=== PATIENT | male | born 1970 | race Caucasian/White ===

== ENCOUNTER 2018-08-07 21:07 | Emergency (ER) | payer MEDICAID, SELFPAY ==
[2018-08-07 21:08] VITALS: BP 151/88; PULSE 94; RESP 14; TEMP 36.7; O2SAT 98; BMI 29.1
--- NOTE | 2018-08-07 21:25 | ED.VISSUMM ---
- ER Visit Summary Date of Service: 08/07/18 Chief Complaint: Needs meds refilled History of Present Illness: The patient is a [address] [place] schizoaffective and bipolar disorder. Sees the counseling center. Patient states he has been out of these meds for 3 days like them to be refilled until he can follow-up. He denies any other complaints. Physical Examination: Well-appearing middle-age male. No acute distress. Vital signs are stable and afebrile. H EENT exam unremarkable. Neck nontender. Lungs clear to auscultation bilaterally. Heart regular rhythm no murmur. Abdomen soft nontender. Patient moving all 4 extremities. No signs of trauma. Neurologically is awake and alert with no focal motor deficits. Test Results: None Emergency Department Course and Treatment: Patient be given a 2-week prescription of his Klonopin and his Ambien and follow-up with the counseling center. Treatment Plan: Follow-up with counseling center Disposition: Discharge Impression: Med refill History of psychiatric illness This note was generated with [employer] dictation software. It may contain incorrect words, spelling, and punctuation that were not noted in review of the chart prior to signing ED Disposition - Plan for ED Patient: Chief Complaint: Med Refill Referrals: Onur Woods MD [Primary Care Provider] -
--- NOTE | 2018-08-07 21:26 | ED.DEP ---
ED Disposition - Plan for ED Patient: Disposition: Home or Assisted Living Chief Complaint: Med Refill Instructions: Med Refill Prescriptions: Clonazepam [Klonopin] 2 mg PO DAILY 14 Days #14 tab Zolpidem Tartrate [Ambien (Generic)] 10 mg PO QHS 14 Days #14 tab Referrals: Onur Woods MD [Primary Care Provider] - Additional Instructions: Follow-up with the counseling center in your psychiatrist for further med refills.
[2018-08-07] MEDS: LORazepam 1 MG Tablet PO (21:31)
--- OUTSIDE RECORDS SUMMARY | 2018-10-11 10:50 | XMS RPT_ITS ---
:1970 Author Organization OHIP Care Team Providers Name Role Phone ONUR YAO Attending Unavailable ONUR YAO Referring Unavailable ELINOR HO (LIQUID SUGAR MELTER) Attending Unavailable ONUR YAO Attending Unavailable ONUR YAO Referring Unavailable ONUR YAO Attending Unavailable ELINOR HO (LIQUID SUGAR MELTER) Attending Unavailable Onur Yao Primary Care Unavailable Shiva Joshua Attending Unavailable PROBLEMS PROBLEMS DATE TYPE CONDITION / CODE ATTENDING STATUS SOURCE 09/04/2017 Active Unknown / NAJMA, Active [facility] UNK(Unknown) ONUR Aguilar [facility] Repository PROCEDURES PROCEDURES No Procedure Records FoundRESULTS RESULTS EMERGENCY DEPARTMENT Observed: 08/07/2018 Status: F Source: ECKERMAN SUMMARY 10:58 PM [facility] [place] REPOSITORY [facility] Medical Records Department [address] [place] [address] Emergency Department Summary 08/07/182124 MR#: [id number] Acct: [id number] Name: ABDULLAHI CHRISTIE Rep #: [id number] : 1970 47 From: Shiva Joshua MD PCP: Onur Yao MD Status: DEP ER - ER Visit Summary Date of Service: 08/07/18 Chief Complaint: Needs meds refilled History of Present Illness: The patient is a [address] [place] schizoaffective and bipolar disorder. Sees the counseling center. Patient states he has been out of these meds for 3 days like them to be refilled until he can follow-up. He denies any other complaints. Physical Examination: Well-appearing middle-age male. No acute distress. Vital signs are stable and afebrile. H EENT exam unremarkable. Neck nontender. Lungs clear to auscultation bilaterally. Heart regular rhythm no murmur. Abdomen soft nontender. Patient moving all 4 extremities. No signs of trauma. Neurologically is awake and alert with no focal motor deficits. Test Results: None Emergency Department Course and Treatment: Patient be given a 2-week prescription of his Klonopin and his Ambien and follow-up with the counseling center. Treatment Plan: Follow-up with counseling center Disposition: Discharge Impression: Med refill History of psychiatric illness This note was generated with [employer] MR[employer] dictation software. It may contain incorrect words, spelling, and punctuation that were not noted in review of the chart prior to signing ED Disposition - Plan for ED Patient: Chief Complaint: Med Refill Referrals: Onur Yao MD [Primary Care Provider] - What to do if you have Problems For any increased pain, shortness of breath, bleeding, nausea or vomiting, chest pain, or any unexpected problems, contact your Primary Care Provider. Call [facility] ([phone]) or report to the closest Emergency Room. Call 911 if necessary. 08/07/18 2258 <Electronically signed by Shiva Joshua MD> Date Shiva Joshua MD Cosigner Signature (If Indicated): Date CC: Onur Yao MD DISCHARGE INSTRUCTION Observed: 08/07/2018 Status: F Source: TATIA[place] 10:58 PM [facility] REPOSITORY [facility] Medical Records Department [address] [place] [address] Discharge Instruction 08/07/182125 MR#: [id number] Acct: [id number] Name: ABDULLAHI CHRISTIE Rep #: [id number] : 1970 47 From: Shiva Joshua MD PCP: Onur Yao MD Status: [facility] ED Disposition - Plan for ED Patient: Disposition: Home or Assisted Living Chief Complaint: Med Refill Instructions: Med Refill Prescriptions: Clonazepam [Klonopin] 2 mg PO DAILY 14 Days #14 tab Zolpidem Tartrate [Ambien (Generic)] 10 mg PO QHS 14 Days #14 tab Referrals: Onur Yao MD [Primary Care Provider] - Additional Instructions: Follow-up with the counseling center in your psychiatrist for further med refills. What to do if you have Problems For any increased pain, shortness of breath, bleeding, nausea or vomiting, chest pain, or any unexpected problems, contact your Primary Care Provider. Call [facility] ([phone]) or report to the closest Emergency Room. Call 911 if necessary. 08/07/18 5195 <Electronically signed by Shiva Joshua MD> Date Shiva Joshua MD Cosigner Signature (If Indicated): Date CC: Onur Yao MD PROGRESS Observed: 07/05/2018 Status: COMPLETED Source: PROSPECT 11:38 AM [facility] REPOSITORY O ID: [id number] Author: Theresa ([facility]) Rosalino Service: (none) Author Type: Health Educator Type: Progress Notes Filed: 07/05/2018 11:38 AM Note Text: Smoking Cessation Navigation Date contact made: 05/25/2018 AND 06/01/2018 Outcome of contact: Left Message Intervention Chosen By Patient: None Comments: Left 2 VM AND email [employer] Roof Plumber/Smoking Cessation Navigator: Theresa Pa [facility] HOSP Observed: 07/05/2018 Status: COMPLETED Source: PROSPECT 12:00 AM [facility] REPOSITORY Patient Update (WIQ) ABDULLAHI CHRISTIE ([id number]) 1970 M Date Time Provider Department 07/05/18 THERESA PA ([facility])MARIA DEL ROSARIO During your visit today, we recorded the following information about you: Theresa [facility] 07/05/2018 11:38 AM Signed Smoking Cessation Navigation Date contact made: 05/25/2018 AND 06/01/2018 Outcome of contact: Left Message Intervention Chosen By Patient: None Comments: Left 2 VM AND email [facility] Roof Plumber/Smoking Cessation Navigator[facility] Allergies As of Date: 07/05/2018 (No Known Allergies) Date Reviewed: 06/24/2018 Reviewed by: Sully Garcia Cma - Fully Assessed Reason for Visit: Smoking Cessation [1387] Prescriptions as of 07/05/2018 Sig: ALBUTEROL SULFATE HFA 90 MCG/* Inhale 2 Puffs as instructed * BENZTROPINE 2 MG TABLET Take 1 tablet by mouth daily * CLONAZEPAM 2 MG TABLET Take 2 mg by mouth daily at b* CLOTRIMAZOLE-BETAMETHASONE 1 * Apply 1 application to affect* FANAPT 1 MG TABLET Take 1 tablet by mouth once d* FLUTICASONE 110 MCG/ACTUATION* Inhale 1 Puff as instructed t* HALOPERIDOL 10 MG TABLET Take 2 tablets by mouth daily* IBUPROFEN 600 MG TABLET Take 1 tablet by mouth every * NAPROXEN 500 MG TABLET Take 1 tablet by mouth twice * NICOTINE (POLACRILEX) 4 MG GUM Take 1 Each by mouth as neede* OMEPRAZOLE 40 MG CAPSULE,CHRISTOPHER* Take 1 capsule by mouth once * ZOLPIDEM 10 MG TABLET Take 1 tablet by mouth at bed* Problem List As Of Date 07/05/2018 Noted Resolved DRUG ABUSE NEC-UNSPEC [F19.10] PARANOID SCHIZO-CHRONIC [F20.0] More... ADJUSTMENT DISORDER WITH DEPRESSED MOOD [F43.21] ESOPHAGEAL REFLUX [K21.9] INVALID FOR* Impotence of organic origin [N52.9] INVALID FOR*09/25/2011 Knee pain, left [M25.562] INVALID FOR*04/03/2016 More... Tobacco use disorder [F17.200] INVALID FOR* Polycythemia, secondary [D75.1] INVALID FOR*10/18/2015 Erectile dysfunction [N52.9] INVALID FOR* Pericardial cyst [Q24.8] INVALID FOR*10/18/2015 Abnormal resting ECG findings [R94.31] INVALID FOR*03/04/2018 Mixed hyperlipidemia [E78.2] INVALID FOR* Bronchitis [J40] INVALID FOR* Male hypogonadism [E29.1] INVALID FOR*04/03/2016 Alcoholism (HCC) [F10.20] INVALID FOR* Encounter Status:Closed by THERESA PA on 07/05/18 PROGRESS Observed: 06/24/2018 Status: COMPLETED Source: PROSPECT 11:29 AM [facility] REPOSITORY HNO ID: [id number] Author: Elinor (Rolling Attendant) Older Service: (none) Author Type: Nurse Practitioner Type: Progress Notes Filed: 06/24/2018 1:02 PM Note Text: CC: Patient presents with: Right hand pain: constant x 1 week-no pain intervention HPI Abdullahi Christie is a 47 year old male who presents today for numbness/tingling of right 1st to 3rd finger, sometimes the 4th. Symptoms have been present x 1 week. No numbness/tingling anywhere else. Denies hand/wrist pain, weakness, decreased interceptor operator strength, neck pain. No swelling. 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 Has had numbness/tingling in both hands before but did not last this long. Admits to doing speed hard core for 8 to 9 months, stopped about 3 weeks ago. No new medications. Patient is not diabetic. History of schizophrenia, currently treated by psychiatry with Grant Marcos Cogentin. REVIEW OF SYSTEMS See HPI PAST MEDICAL HISTORY Diagnosis Date - Abnormal resting ECG findings 08/04/2014 - Acute hyperactive delirium due to another medical condition 01/19/2016 medication overdose - Adjustment disorder with depressed mood - Alcohol withdrawal (HCC) 09/21/2015 - Aspiration pneumonia (HCC) 09/21/2015 with respiratory failure, CELIA - Esophageal reflux 07/08/2005 Small hiatal hernia - Male hypogonadism 01/04/2015 - Other, mixed, or unspecified nondependent drug abuse, unspecified 1989 - Paranoid schizophrenia, chronic condition ([facility] [address] [place] [address] - Pericardial cyst 06/26/2014 - Polycythemia, secondary 01/31/2011 - Tobacco use disorder 09/25/2011 PAST SURGICAL HISTORY Procedure Laterality Date - NONE ALLERGIES Patient has no known allergies. MEDICATIONS ibuprofen (MOTRIN) 600 mg tablet Take 1 tablet by mouth every 6 hours as needed for Pain. albuterol HFA (VENTOLIN HFA) 90 mcg/actuation inhaler Inhale 2 Puffs as instructed every 6 hours as needed (coughing,wheezing). fluticasone (FLOVENT HFA) 110 mcg/actuation inhaler Inhale 1 Puff as instructed twice daily. Omeprazole 40 mg capsule Take 1 capsule by mouth once daily. clotrimazole-betamethasone (LOTRISONE) cream Apply 1 application to affected area twice daily as needed. FANAPT 1 mg tab Take 1 tablet by mouth once daily. zolpidem (AMBIEN) 10 mg tab Take 1 tablet by mouth at bedtime as needed (insomnia). clonazePAM (KLONOPIN) 2 mg tablet Take 2 mg by mouth daily at bedtime. Per Psychiatry haloperidol (HALDOL) 10 mg tablet Take 2 tablets by mouth daily at bedtime. benztropine (COGENTIN) 2 mg tablet Take 1 tablet by mouth daily at bedtime. nicotine polacrilex (NICORETTE) 4 mg gum Take 1 Each by mouth as needed. FAMILY HISTORY Problem Relation Age of Onset - Hypertension Father - Lipids Father - Cancer Mother Lung Social History Substance Use Topics - Smoking status: Current Every Day Smoker Packs/day: 1.00 Years: 35.00 Types: Cigars, Cigarettes - Smokeless tobacco: Former User Types: Snuff - Alcohol use 1.0 oz/week Comment: Once or twice a week PHYSICAL EXAM BP 120/70 Pulse 89 Temp 36.1 ?C (97 ?F) (Temporal Artery) Wt 81.6 kg (180 lb) SpO2 95% BMI 27.17 kg/m? General Appearance: well appearing, in no acute distress, alert RUE: No swelling or deformities. No tenderness of elbow, wrist, hand or fingers. Full and painless ROM of wrist. Sensation intact. Good cap refill. Pulses 2+. Fingers warm, pink and mobile. Negative Phalen and Tinel. Muscle strength 5/5 bilaterally. Reflexes 1+ and symmetric. DIABETES SCREEN due on 11/15/2017 LIPID SCREEN due on 06/13/2020 DTAP,TDAP,TD(2 - Td) due on 03/04/2028 ONE PNEUMOVAX PRIOR TO AGE 65 Completed INFLUENZA Completed ASSESSMENT/PLAN: 1. Numbness and tingling in right hand - ICD9: 782.0, ICD10: R20.0, R20.2 Multiple possible etiologies including medications, drug abuse, Carpal tunnel syndrome. No alarm symptoms or exam findings today. - Start Naproxen, see orders - Follow-up in 1 to 2 weeks if no improvement or sooner if worsening. May need further evaluation with labs at that time Prescription instructions reviewed with patient as applicable. Potential red flag symptoms discussed with the patient. Reviewed appropriate action plan to take if red flag symptoms occur. Patient agreeable to treatment plan. Elinor Ho APRN.CNP CNOV Observed: 06/24/2018 Status: COMPLETED Source: PROSPECT 11:20 AM [facility] REPOSITORY Office Visit (INTMWS) ABDULLAHI CHRISTIE ([id number]) 1970 M Date Time Provider Department 06/24/18 11:20 AM ELINOR HO (ADRIANA) INTMWS During your visit today, we recorded the following information about you: Temperature Pulse Blood pressure Weight 97 degrees 89/minute 120/70 81.6 kg Elinor Ho APRN.CNP 06/24/2018 1:02 PM Signed CC: Patient presents with: Right hand pain: constant x 1 week-no pain intervention HPI Abdullahi Christie is a 47 year old male who presents today for numbness/tingling of right 1st to 3rd finger, sometimes the 4th. Symptoms have been present x 1 week. No numbness/tingling anywhere else. Denies hand/wrist pain, weakness, decreased interceptor operator strength, neck pain. No swelling. 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 Has had numbness/tingling in both hands before but did not last this long. Admits to doing speed hard core for 8 to 9 months, stopped about 3 weeks ago. No new medications. Patient is not diabetic. History of schizophrenia, currently treated by psychiatry with Haldol, Klonopin, Cogentin. REVIEW OF SYSTEMS See HPI PAST MEDICAL HISTORY Diagnosis Date - Abnormal resting ECG findings 08/04/2014 - Acute hyperactive delirium due to another medical condition 01/19/2016 medication overdose - Adjustment disorder with depressed mood - Alcohol withdrawal (HCC) 09/21/2015 - Aspiration pneumonia ([facility]) 09/21/2015 with respiratory failure, CELIA - Esophageal reflux 07/08/2005 Small hiatal hernia - Male hypogonadism 01/04/2015 - Other, mixed, or unspecified nondependent drug abuse, unspecified 1989 - Paranoid schizophrenia, chronic condition ([facility]) [facility] - Pericardial cyst 06/26/2014 - Polycythemia, secondary 01/31/2011 - Tobacco use disorder 09/25/2011 PAST SURGICAL HISTORY Procedure Laterality Date - NONE ALLERGIES Patient has no known allergies. MEDICATIONS ibuprofen (MOTRIN) 600 mg tablet Take 1 tablet by mouth every 6 hours as needed for Pain. albuterol HFA (VENTOLIN HFA) 90 mcg/actuation inhaler Inhale 2 Puffs as instructed every 6 hours as needed (coughing,wheezing). fluticasone (FLOVENT HFA) 110 mcg/actuation inhaler Inhale 1 Puff as instructed twice daily. Omeprazole 40 mg capsule Take 1 capsule by mouth once daily. clotrimazole-betamethasone (LOTRISONE) cream Apply 1 application to affected area twice daily as needed. FANAPT 1 mg tab Take 1 tablet by mouth once daily. zolpidem (AMBIEN) 10 mg tab Take 1 tablet by mouth at bedtime as needed (insomnia). clonazePAM (KLONOPIN) 2 mg tablet Take 2 mg by mouth daily at bedtime. Per Psychiatry haloperidol (HALDOL) 10 mg tablet Take 2 tablets by mouth daily at bedtime. benztropine (COGENTIN) 2 mg tablet Take 1 tablet by mouth daily at bedtime. nicotine polacrilex (NICORETTE) 4 mg gum Take 1 Each by mouth as needed. FAMILY HISTORY Problem Relation Age of Onset - Hypertension Father - Lipids Father - Cancer Mother Lung Social History Substance Use Topics - Smoking status: Current Every Day Smoker Packs/day: 1.00 Years: 35.00 Types: Cigars, Cigarettes - Smokeless tobacco: Former User Types: Snuff - Alcohol use 1.0 oz/week Comment: Once or twice a week PHYSICAL EXAM BP 120/70 Pulse 89 Temp 36.1 ?C (97 ?F) (Temporal Artery) Wt 81.6 kg (180 lb) SpO2 95% BMI 27.17 kg/m? General Appearance: well appearing, in no acute distress, alert RUE: No swelling or deformities. No tenderness of elbow, wrist, hand or fingers. Full and painless ROM of wrist. Sensation intact. Good cap refill. Pulses 2+. Fingers warm, pink and mobile. Negative Phalen and Tinel. Muscle strength 5/5 bilaterally. Reflexes 1+ and symmetric. DIABETES SCREEN due on 11/15/2017 LIPID SCREEN due on 06/13/2020 DTAP,TDAP,TD(2 - Td) due on 03/04/2028 ONE PNEUMOVAX PRIOR TO AGE 65 Completed INFLUENZA Completed ASSESSMENT/PLAN: 1. Numbness and tingling in right hand - ICD9: 782.0, ICD10: R20.0, R20.2 Multiple possible etiologies including medications, drug abuse, Carpal tunnel syndrome. No alarm symptoms or exam findings today. - Start Naproxen, see orders - Follow-up in 1 to 2 weeks if no improvement or sooner if worsening. May need further evaluation with labs at that time Prescription instructions reviewed with patient as applicable. Potential red flag symptoms discussed with the patient. Reviewed appropriate action plan to take if red flag symptoms occur. Patient agreeable to treatment plan. BEN Lindsay APRN.CNP 06/24/2018 11:39 AM Signed Take Naproxen twice a day with a meal for one week Call office in 1 to 2 weeks if numbness/tingling does not improve or sooner if worsening Referring Provider: SELF [200] Allergies As of Date: 06/24/2018 (No Known Allergies) Date Reviewed: 06/24/2018 Reviewed by: Sully Garcia Broker - Fully Assessed Reason for Visit: Right hand pain [Other] Cmt: constant x 1 week-no pain intervention Primary Visit Diagnosis:Numbness and tingling in right hand [R20.0, R20.2] Order(s):naproxen (NAPROSYN) 500 mg tabletTake 1 tablet by mouth twice daily with meals. Take with food.Disp: 30 tabletRfl: 1 Prescriptions as of 06/24/2018 Sig: IBUPROFEN 600 MG TABLET Take 1 tablet by mouth every * ALBUTEROL SULFATE HFA 90 MCG/* Inhale 2 Puffs as instructed * FLUTICASONE 110 MCG/ACTUATION* Inhale 1 Puff as instructed t* OMEPRAZOLE 40 MG CAPSULE,CHRISTOPHER* Take 1 capsule by mouth once * CLOTRIMAZOLE-BETAMETHASONE 1 * Apply 1 application to affect* FANAPT 1 MG TABLET Take 1 tablet by mouth once d* ZOLPIDEM 10 MG TABLET Take 1 tablet by mouth at bed* CLONAZEPAM 2 MG TABLET Take 2 mg by mouth daily at b* HALOPERIDOL 10 MG TABLET Take 2 tablets by mouth daily* BENZTROPINE 2 MG TABLET Take 1 tablet by mouth daily * NAPROXEN 500 MG TABLET Take 1 tablet by mouth twice * NICOTINE (POLACRILEX) 4 MG GUM Take 1 Each by mouth as neede* Problem List As Of Date 06/24/2018 Noted Resolved DRUG ABUSE NEC-UNSPEC [F19.10] PARANOID SCHIZO-CHRONIC [F20.0] More... ADJUSTMENT DISORDER WITH DEPRESSED MOOD [F43.21] ESOPHAGEAL REFLUX [K21.9] INVALID FOR* Impotence of organic origin [N52.9] INVALID FOR*09/25/2011 Knee pain, left [M25.562] INVALID FOR*04/03/2016 More... Tobacco use disorder [F17.200] INVALID FOR* Polycythemia, secondary [D75.1] INVALID FOR*10/18/2015 Erectile dysfunction [N52.9] INVALID FOR* Pericardial cyst [Q24.8] INVALID FOR*10/18/2015 Abnormal resting ECG findings [R94.31] INVALID FOR*03/04/2018 Mixed hyperlipidemia [E78.2] INVALID FOR* Bronchitis [J40] INVALID FOR* Male hypogonadism [E29.1] INVALID FOR*04/03/2016 Alcoholism (HCC) [F10.20] INVALID FOR* Other instructions from your clinician: Take Naproxen twice a day with a meal for one week Call office in 1 to 2 weeks if numbness/tingling does not improve or sooner if worsening Prescriptions ordered this encounter Disp Refills Start End NAPROXEN 500 MG TABLET 30 t* 1 06/24/2018 Route: ORAL Sig: Take 1 tablet by mouth twice daily with meals. Take with food. Encounter Status:Closed by OLDER, ELINOR LIQUID SUGAR MELTER on 06/24/18 PROGRESS Observed: 05/25/2018 Status: COMPLETED Source: PROSPECT 11:47 PM [facility] REPOSITORY HNO ID: [id number] Author: Onur Yao Service: (none) Author Type: Physician Type: Progress Notes Filed: 05/25/2018 11:56 PM Note Text: This note was created using [employer]. Subjective Abdullahi Christie was here for right flank, hip, and thigh pain, sharp, onset 4 days ago, precipitated by pivoting on his right hip. He denied any injury. Pain was intermittent with certain movements. He had not taken any medication for pain. His bronchitis was stable. He requested nicotine gum to help him quit smoking and refill of inhalers. He continued with alcohol and substance abuse. He followed with psychiatry but was hesitant to seek help. ACTIVE PROBLEM LIST Other, Mixed, Or Unspecified Nondependent Drug Abuse, Unspecified Paranoid Schizophrenia, Chronic Condition ([facility]) Adjustment Disorder With Depressed Mood Esophageal Reflux Tobacco Use Disorder Erectile Dysfunction Mixed Hyperlipidemia Bronchitis Alcoholism ([facility]) Current Outpatient Prescriptions: albuterol HFA (VENTOLIN HFA) 90 mcg/actuation inhaler Inhale 2 Puffs as instructed every 6 hours as needed (coughing,wheezing). fluticasone (FLOVENT HFA) 110 mcg/actuation inhaler Inhale 1 Puff as instructed twice daily. Omeprazole 40 mg capsule Take 1 capsule by mouth once daily. clotrimazole-betamethasone (LOTRISONE) cream Apply 1 application to affected area twice daily as needed. FANAPT 1 mg tab Take 1 tablet by mouth once daily. zolpidem (AMBIEN) 10 mg tab Take 1 tablet by mouth at bedtime as needed (insomnia). clonazePAM (KLONOPIN) 2 mg tablet Take 2 mg by mouth daily at bedtime. Per Psychiatry haloperidol (HALDOL) 10 mg tablet Take 2 tablets by mouth daily at bedtime. benztropine (COGENTIN) 2 mg tablet Take 1 tablet by mouth daily at bedtime. ibuprofen (MOTRIN) 600 mg tablet Take 1 tablet by mouth every 6 hours as needed for Pain. nicotine polacrilex (NICORETTE) 4 mg gum Take 1 Each by mouth as needed. No current facility-administered medications for this visit. Review of Systems Constitutional: Negative. Respiratory: Positive for cough. Negative for shortness of breath and wheezing. Cardiovascular: Negative. Gastrointestinal: Negative. Genitourinary: Negative. Musculoskeletal: Positive for myalgias. Objective BP 110/64 (BP Site: Right Arm, BP Position: Sitting, BP Cuff Size: Regular Adult) Pulse 96 Temp 36.4 ?C (97.6 ?F) (Left Tympanic) Resp 20 Wt 83.9 kg (185 lb) BMI 27.92 kg/m? Physical Exam Constitutional: No distress. Cardiovascular: Normal heart sounds. Pulmonary/Chest: No respiratory distress. He has wheezes. He has no rales. Abdominal: Soft. There is no tenderness. Musculoskeletal: He exhibits no edema. Right hip: He exhibits decreased range of motion and tenderness. He exhibits normal strength, no bony tenderness, no swelling and no deformity. Left hip: Normal. Right knee: Normal. Left knee: Normal. Assessment and Plan 1. Strain of right hip, initial encounter - ICD9: 843.9, ICD10: S76.011A (primary diagnosis) - IBUPROFEN 600 MG TABLET Discussed medication dosage, usage, goals of therapy, and side effects. 2. Bronchitis - ICD9: 490, ICD10: J40 Refilled. - ALBUTEROL SULFATE HFA 90 MCG/ACTUATION AEROSOL INHALER - FLUTICASONE 110 MCG/ACTUATION HFA AEROSOL INHALER 3. Tobacco use disorder - ICD9: 305.1, ICD10: F17.200 - Cessation encouraged. - Counseling was given focusing on the harmful effects of this addiction especially given the patient's medical condition(s) which will be worsened because of the chemicals in tobacco. - NICOTINE (POLACRILEX) 4 MG GUM 4. Substance abuse (HCC) - ICD9: 305.90, ICD10: F19.10 He declined referral. He was instructed to call Dmitry. MD CADY Bullard Observed: 05/25/2018 Status: COMPLETED Source: PROSPECT 4:00 PM [facility] REPOSITORY Office Visit (INTMWS) ABDULLAHI CHRISTIE ([id number]) 1970 M Date Time Provider Department 05/25/18 4:00 PM ONUR YAO During your visit today, we recorded the following information about you: Temperature Pulse Respiration Blood pressure 97.6 degrees 96/minute 20/minute 110/64 Weight 83.9 kg Onur Yao MD 05/25/2018 4:26 PM Signed Call [facility] for help. Onur Yao MD 05/25/2018 11:56 PM Signed This note was created using [employer]. Subjective Abdullahi Christie was here for right flank, hip, and thigh pain, sharp, onset 4 days ago, precipitated by pivoting on his right hip. He denied any injury. Pain was intermittent with certain movements. He had not taken any medication for pain. His bronchitis was stable. He requested nicotine gum to help him quit smoking and refill of inhalers. He continued with alcohol and substance abuse. He followed with psychiatry but was hesitant to seek help. ACTIVE PROBLEM LIST Other, Mixed, Or Unspecified Nondependent Drug Abuse, Unspecified Paranoid Schizophrenia, Chronic Condition (Hcc) Adjustment Disorder With Depressed Mood Esophageal Reflux Tobacco Use Disorder Erectile Dysfunction Mixed Hyperlipidemia Bronchitis Alcoholism (Hcc) Current Outpatient Prescriptions: albuterol HFA (VENTOLIN HFA) 90 mcg/actuation inhaler Inhale 2 Puffs as instructed every 6 hours as needed (coughing,wheezing). fluticasone (FLOVENT HFA) 110 mcg/actuation inhaler Inhale 1 Puff as instructed twice daily. Omeprazole 40 mg capsule Take 1 capsule by mouth once daily. clotrimazole-betamethasone (LOTRISONE) cream Apply 1 application to affected area twice daily as needed. FANAPT 1 mg tab Take 1 tablet by mouth once daily. zolpidem (AMBIEN) 10 mg tab Take 1 tablet by mouth at bedtime as needed (insomnia). clonazePAM (KLONOPIN) 2 mg tablet Take 2 mg by mouth daily at bedtime. Per Psychiatry haloperidol (HALDOL) 10 mg tablet Take 2 tablets by mouth daily at bedtime. benztropine (COGENTIN) 2 mg tablet Take 1 tablet by mouth daily at bedtime. ibuprofen (MOTRIN) 600 mg tablet Take 1 tablet by mouth every 6 hours as needed for Pain. nicotine polacrilex (NICORETTE) 4 mg gum Take 1 Each by mouth as needed. No current facility-administered medications for this visit. Review of Systems Constitutional: Negative. Respiratory: Positive for cough. Negative for shortness of breath and wheezing. Cardiovascular: Negative. Gastrointestinal: Negative. Genitourinary: Negative. Musculoskeletal: Positive for myalgias. Objective BP 110/64 (BP Site: Right Arm, BP Position: Sitting, BP Cuff Size: Regular Adult) Pulse 96 Temp 36.4 ?C (97.6 ?F) (Left Tympanic) Resp 20 Wt 83.9 kg (185 lb) BMI 27.92 kg/m? Physical Exam Constitutional: No distress. Cardiovascular: Normal heart sounds. Pulmonary/Chest: No respiratory distress. He has wheezes. He has no rales. Abdominal: Soft. There is no tenderness. Musculoskeletal: He exhibits no edema. Right hip: He exhibits decreased range of motion and tenderness. He exhibits normal strength, no bony tenderness, no swelling and no deformity. Left hip: Normal. Right knee: Normal. Left knee: Normal. Assessment and Plan 1. Strain of right hip, initial encounter - ICD9: 843.9, ICD10: S76.011A (primary diagnosis) - IBUPROFEN 600 MG TABLET Discussed medication dosage, usage, goals of therapy, and side effects. 2. Bronchitis - ICD9: 490, ICD10: J40 Refilled. - ALBUTEROL SULFATE HFA 90 MCG/ACTUATION AEROSOL INHALER - FLUTICASONE 110 MCG/ACTUATION HFA AEROSOL INHALER 3. Tobacco use disorder - ICD9: 305.1, ICD10: F17.200 - Cessation encouraged. - Counseling was given focusing on the harmful effects of this addiction especially given the patient's medical condition(s) which will be worsened because of the chemicals in tobacco. - NICOTINE (POLACRILEX) 4 MG GUM 4. Substance abuse (HCC) - ICD9: 305.90, ICD10: F19.10 He declined referral. He was instructed to call [facility]. Onur Yao MD Referring Provider: SELF [[id number]] Allergies As of Date: 05/25/2018 (No Known Allergies) Date Reviewed: 05/25/2018 Reviewed by: Blank Blanco LPN - Fully Assessed Reason for Visit: Pain [78] Reason For Visit History Recorded Primary Visit Diagnosis:Strain of right hip, initial encounter [S76.011A] Other Visit Diagnoses:Bronchitis [J40] Tobacco use disorder [F17.200] Substance abuse (HCC) [F19.10] Order(s):ibuprofen (MOTRIN) 600 mg tabletTake 1 tablet by mouth every 6 hours as needed for Pain.Disp: 40 tabletRfl: 0 albuterol HFA (VENTOLIN HFA) 90 mcg/actuation inhalerInhale 2 Puffs as instructed every 6 hours as needed (coughing,wheezing).Disp: 1 InhalerRfl: 5 fluticasone (FLOVENT HFA) 110 mcg/actuation inhalerInhale 1 Puff as instructed twice daily.Disp: 1 InhalerRfl: 5 nicotine polacrilex (NICORETTE) 4 mg gumTake 1 Each by mouth as needed.Disp: 190 EachRfl: 1 Prescriptions as of 05/25/2018 Sig: ALBUTEROL SULFATE HFA 90 MCG/* Inhale 2 Puffs as instructed * FLUTICASONE 110 MCG/ACTUATION* Inhale 1 Puff as instructed t* OMEPRAZOLE 40 MG CAPSULE,CHRISTOPHER* Take 1 capsule by mouth once * CLOTRIMAZOLE-BETAMETHASONE 1 * Apply 1 application to affect* FANAPT 1 MG TABLET Take 1 tablet by mouth once d* ZOLPIDEM 10 MG TABLET Take 1 tablet by mouth at bed* CLONAZEPAM 2 MG TABLET Take 2 mg by mouth daily at b* HALOPERIDOL 10 MG TABLET Take 2 tablets by mouth daily* BENZTROPINE 2 MG TABLET Take 1 tablet by mouth daily * IBUPROFEN 600 MG TABLET Take 1 tablet by mouth every * NICOTINE (POLACRILEX) 4 MG GUM Take 1 Each by mouth as neede* Problem List As Of Date 05/25/2018 Noted Resolved DRUG ABUSE NEC-UNSPEC [F19.10] PARANOID SCHIZO-CHRONIC [F20.0] More... ADJUSTMENT DISORDER WITH DEPRESSED MOOD [F43.21] ESOPHAGEAL REFLUX [K21.9] INVALID FOR* Impotence of organic origin [N52.9] INVALID FOR*09/25/2011 Knee pain, left [M25.562] INVALID FOR*04/03/2016 More... Tobacco use disorder [F17.200] INVALID FOR* Polycythemia, secondary [D75.1] INVALID FOR*10/18/2015 Erectile dysfunction [N52.9] INVALID FOR* Pericardial cyst [Q24.8] INVALID FOR*10/18/2015 Abnormal resting ECG findings [R94.31] INVALID FOR*03/04/2018 Mixed hyperlipidemia [E78.2] INVALID FOR* Bronchitis [J40] INVALID FOR* Male hypogonadism [E29.1] INVALID FOR*04/03/2016 Alcoholism (HCC) [F10.20] INVALID FOR* Other instructions from your clinician: Call Dmitry for help. Prescriptions ordered this encounter Disp Refills Start End IBUPROFEN 600 MG TABLET 40 t* 0 05/25/2018 Route: ORAL Sig: Take 1 tablet by mouth every 6 hours as needed for Pain. ALBUTEROL SULFATE HFA 90 MCG/ACTUATI* 1 In* 5 05/25/2018 Route: INHALATION Sig: Inhale 2 Puffs as instructed every 6 hours as needed (coughing,wheezing). FLUTICASONE 110 MCG/ACTUATION HFA AE* 1 In* 5 05/25/2018 Route: INHALATION Sig: Inhale 1 Puff as instructed twice daily. NICOTINE (POLACRILEX) 4 MG GUM 190 * 1 05/25/2018 Route: ORAL Sig: Take 1 Each by mouth as needed. Medications Discontinued During This Encounter buPROPion SR (ZYBAN SR; WELLBUTRIN S* 07/02/2017 05/25/2018 Class: Historical Med Route: ORAL Sig: Take 1 tablet by mouth once daily. Disc: Reason for discontinue is not on file. albuterol HFA (VENTOLIN HFA) 90 mcg/* 1 In* 5 03/04/2018 05/25/2018 Route: INHALATION Sig: Inhale 2 Puffs as instructed every 6 hours as needed (coughing,wheezing). Disc: Reason for discontinue is not on file. fluticasone (FLOVENT HFA) 110 mcg/ac* 1 In* 5 03/04/2018 05/25/2018 Route: INHALATION Sig: Inhale 1 Puff as instructed twice daily. Disc: Reason for discontinue is not on file. Disposition: Return if symptoms worsen or fail to improve. Follow-up and Disposition History Recorded Encounter Status:Closed by ONUR YAO MD on 05/25/18 CADY Observed: 04/29/2018 Status: COMPLETED Source: PROSPECT 10:45 AM [facility] REPOSITORY [facility] ABDULLAHI CHRISTIE ([id number]) 1970 M Date Time Provider Department 04/29/18 10:45 AM KYLAH LOPEZ ([facility]) [facility] During your visit today, we recorded the following information about you: Temperature Pulse Respiration Blood pressure 97.1 degrees 84/minute 20/minute 100/74 Weight 78 kg Kylah Lopez APRN.CNP 04/29/2018 11:31 AM Signed Subjective HPI Abdullahi Radha Christie is a 47 year old male who presents with a cough for 2 weeks. He has had sick contacts in friends and family. He is currently taking doxycycline, was prescribed this in [facility] care 4 days ago. He feels this is not working. He states he coughs so much he cannot smoke. Review of Systems Constitutional: Positive for diaphoresis. Negative for fever. HENT: Positive for congestion. Negative for sore throat. Respiratory: Positive for cough, sputum production and shortness of breath. Cardiovascular: Negative. Negative for chest pain. Gastrointestinal: Negative. Negative for abdominal pain, diarrhea, nausea and vomiting. Neurological: Positive for headaches. BP 100/74 Pulse 98 Temp 36.2 ?C (97.1 ?F) (Left Tympanic) Resp 20 Wt 78 kg (172 lb) SpO2 96% BMI 25.96 kg/m? PAST MEDICAL HISTORY Diagnosis Date - Abnormal resting ECG findings 08/04/2014 - Acute hyperactive delirium due to another medical condition 01/19/2016 medication overdose - Adjustment disorder with depressed mood - Alcohol withdrawal (HCC) 09/21/2015 - Aspiration pneumonia (HCC) 09/21/2015 with respiratory failure, CELIA - Esophageal reflux 07/08/2005 Small hiatal hernia - Male hypogonadism 01/04/2015 - Other, mixed, or unspecified nondependent drug abuse, unspecified 1989 - Paranoid schizophrenia, chronic condition (HCC) [address] [facility] - Pericardial cyst 06/26/2014 - Polycythemia, secondary 01/31/2011 - Tobacco use disorder 09/25/2011 PAST SURGICAL HISTORY Procedure Laterality Date - NONE ALLERGIES Patient has no known allergies. MEDICATIONS doxycycline monohydrate (MONODOX) 100 mg capsule Take 1 capsule by mouth twice daily for 10 days. Omeprazole 40 mg capsule Take 1 capsule by mouth once daily. albuterol HFA (VENTOLIN HFA) 90 mcg/actuation inhaler Inhale 2 Puffs as instructed every 6 hours as needed (coughing,wheezing). fluticasone (FLOVENT HFA) 110 mcg/actuation inhaler Inhale 1 Puff as instructed twice daily. clotrimazole-betamethasone (LOTRISONE) cream Apply 1 application to affected area twice daily as needed. FANAPT 1 mg tab Take 1 tablet by mouth once daily. zolpidem (AMBIEN) 10 mg tab Take 1 tablet by mouth at bedtime as needed (insomnia). clonazePAM (KLONOPIN) 2 mg tablet Take 2 mg by mouth daily at bedtime. Per Psychiatry haloperidol (HALDOL) 10 mg tablet Take 2 tablets by mouth daily at bedtime. benztropine (COGENTIN) 2 mg tablet Take 1 tablet by mouth daily at bedtime. buPROPion SR (ZYBAN SR; WELLBUTRIN SR) 150 mg 12 hr tablet Take 1 tablet by mouth once daily. FAMILY HISTORY Problem Relation Age of Onset - Hypertension Father - Lipids Father - Cancer Mother Lung Social History Substance Use Topics - Smoking status: Current Every Day Smoker Packs/day: 1.00 Years: 35.00 Types: Cigars, Cigarettes - Smokeless tobacco: Former User Types: Snuff - Alcohol use 1.0 oz/week Comment: Once or twice a week Objective Physical Exam Constitutional: He is well-developed, well-nourished, and in no distress. Cardiovascular: Normal rate, regular rhythm and normal heart sounds. Pulmonary/Chest: Effort normal. No tachypnea. No respiratory distress. He has no decreased breath sounds. He has wheezes in the right upper field, the right middle field, the left upper field and the left middle field. He has no rales. SpO2 98% Post albuterol: SpO2 98% Neurological: He is alert. Skin: Skin is warm and dry. No rash noted. No erythema. Nursing note and vitals reviewed. ASSESSMENT/PLAN: 1. Lower resp. tract infection - ICD9: 519.8, ICD10: J22 (primary diagnosis) - AZITHROMYCIN 250 MG TABLET 2. Wheezing - ICD9: 786.07, ICD10: R06.2 - PREDNISONE 20 MG TABLET - ALBUTEROL SULFATE 2.5 MG/3 ML (0.083 %) SOLUTION FOR NEBULIZATION- given in office. - continue use of inhaler - Follow-up with your PCP in 3-5 days if symptoms have not improved or sooner if symptoms worsen - Discussed red flags and need for immediate medical evaluation if any occur. - Discussed supportive care treatment with fluids, rest and analgesia. - Discussed expected course of illness BEN Willis APRN.CNP 04/29/2018 10:51 AM Signed ASSESSMENT/PLAN: 1. Lower resp. tract infection - ICD9: 519.8, ICD10: J22 (primary diagnosis) - AZITHROMYCIN 250 MG TABLET 2. Wheezing - ICD9: 786.07, ICD10: R06.2 - PREDNISONE 20 MG TABLET - ALBUTEROL SULFATE 2.5 MG/3 ML (0.083 %) SOLUTION FOR NEBULIZATION - Follow-up with your PCP in 3-5 days if symptoms have not improved or sooner if symptoms worsen - Discussed red flags and need for immediate medical evaluation if any occur. - Discussed supportive care treatment with fluids, rest and analgesia. - Discussed expected course of illness Kylah Lopez APRN.CNP ACUTE BRONCHITIS: You have acute bronchitis. This means the airway passages in your lungs are inflamed. Bronchitis may be caused by viruses or bacteria. Inhaling cigarette smoke will always make it worse. Exposure to irritating chemicals or second hand smoke as well as allergies can contribute to bronchitis. Repeat episodes of bronchitis may cause lifelong lung problems. Acute bronchitis is usually treated with rest, fluids, cough medicine, and possibly antibiotics or inhaled medicine to open up the small airways. It is very important that you avoid smoke and drink increased amounts of fluids. A cool air vaporizer can help thin bronchial secretions. This makes it easier to cough and clear your chest. If you are a cigarette smoker, consider using nicotine gum or skin patches to help you withdraw. Recovery from bronchitis is often slow, but you should start feeling better after 2-3 days of treatment. Please call your doctor or return here if you have any of the following symptoms: - Increased fever, chills, or chest pain. - Severe shortness of breath or bloody sputum. - Do not improve after 3 days of proper treatment. Heremlinda Foster Ma 04/29/2018 11:17 AM Signed 2.5 solution aerosol treatment given per doctor's orders. Prior to treatment O2 Sat is 94%. Treatment completed. O2 sat is 98%. Tolerated well. Referring Provider: SELF [[id number]] Allergies As of Date: 04/29/2018 (No Known Allergies) Date Reviewed: 04/29/2018 Reviewed by: Hermelinda Foster Ma - Fully Assessed Reason for Visit: Cough [28] Primary Visit Diagnosis:Lower resp. tract infection [J22] Other Visit Diagnosis:Wheezing [R06.2] Order(s):azithromycin (ZITHROMAX Z-ALVAREZ) 250 mg tabletTake 2 tablets day one, then, 1 tablet daily until gone.Disp: 1 PackageRfl: 0 predniSONE (DELTASONE) 20 mg tabletTake 2 tablets by mouth once daily for 3 days. Take daily with food.Disp: 6 tabletRfl: 0 [] albuterol 2.5 mg /3 mL (0.083 %) 2.5 mg (PROVENTIL)Disp: Rfl: Prescriptions as of 04/29/2018 Sig: DOXYCYCLINE MONOHYDRATE 100 M* Take 1 capsule by mouth twice* OMEPRAZOLE 40 MG CAPSULE,CHRISTOPHER* Take 1 capsule by mouth once * ALBUTEROL SULFATE HFA 90 MCG/* Inhale 2 Puffs as instructed * FLUTICASONE 110 MCG/ACTUATION* Inhale 1 Puff as instructed t* CLOTRIMAZOLE-BETAMETHASONE 1 * Apply 1 application to affect* FANAPT 1 MG TABLET Take 1 tablet by mouth once d* ZOLPIDEM 10 MG TABLET Take 1 tablet by mouth at bed* CLONAZEPAM 2 MG TABLET Take 2 mg by mouth daily at b* HALOPERIDOL 10 MG TABLET Take 2 tablets by mouth daily* BENZTROPINE 2 MG TABLET Take 1 tablet by mouth daily * AZITHROMYCIN 250 MG TABLET Take 2 tablets day one, then,* PREDNISONE 20 MG TABLET Take 2 tablets by mouth once * BUPROPION HCL SR 150 MG TABLE* Take 1 tablet by mouth once d* Problem List As Of Date 04/29/2018 Noted Resolved DRUG ABUSE NEC-UNSPEC [F19.10] PARANOID SCHIZO-CHRONIC [F20.0] More... ADJUSTMENT DISORDER WITH DEPRESSED MOOD [F43.21] ESOPHAGEAL REFLUX [K21.9] INVALID FOR* Impotence of organic origin [N52.9] INVALID FOR*09/25/2011 Knee pain, left [M25.562] INVALID FOR*04/03/2016 More... Tobacco use disorder [F17.200] INVALID FOR* Polycythemia, secondary [D75.1] INVALID FOR*10/18/2015 Erectile dysfunction [N52.9] INVALID FOR* Pericardial cyst [Q24.8] INVALID FOR*10/18/2015 Abnormal resting ECG findings [R94.31] INVALID FOR*03/04/2018 Mixed hyperlipidemia [E78.2] INVALID FOR* Bronchitis [J40] INVALID FOR* Male hypogonadism [E29.1] INVALID FOR*04/03/2016 Alcoholism (HCC) [F10.20] INVALID FOR* Other instructions from your clinician: ASSESSMENT/PLAN: 1. Lower resp. tract infection - ICD9: 519.8, ICD10: J22 (primary diagnosis) - AZITHROMYCIN 250 MG TABLET 2. Wheezing - ICD9: 786.07, ICD10: R06.2 - PREDNISONE 20 MG TABLET - ALBUTEROL SULFATE 2.5 MG/3 ML (0.083 %) SOLUTION FOR NEBULIZATION - Follow-up with your PCP in 3-5 days if symptoms have not improved or sooner if symptoms worsen - Discussed red flags and need for immediate medical evaluation if any occur. - Discussed supportive care treatment with fluids, rest and analgesia. - Discussed expected course of illness Kylah Lopez APRN.LIQUID SUGAR MELTER ACUTE BRONCHITIS: You have acute bronchitis. This means the airway passages in your lungs are inflamed. Bronchitis may be caused by viruses or bacteria. Inhaling cigarette smoke will always make it worse. Exposure to irritating chemicals or second hand smoke as well as allergies can contribute to bronchitis. Repeat episodes of bronchitis may cause lifelong lung problems. Acute bronchitis is usually treated with rest, fluids, cough medicine, and possibly antibiotics or inhaled medicine to open up the small airways. It is very important that you avoid smoke and drink increased amounts of fluids. A cool air vaporizer can help thin bronchial secretions. This makes it easier to cough and clear your chest. If you are a cigarette smoker, consider using nicotine gum or skin patches to help you withdraw. Recovery from bronchitis is often slow, but you should start feeling better after 2-3 days of treatment. Please call your doctor or return here if you have any of the following symptoms: - Increased fever, chills, or chest pain. - Severe shortness of breath or bloody sputum. - Do not improve after 3 days of proper treatment. Visit Notes: >> Hermelinda Foster Ma Keira Apr 29, 2018 11:17 AM Status: Signed 2.5 solution aerosol treatment given per doctor's orders. Prior to treatment O2 Sat is 94%. Treatment completed. O2 sat is 98%. Tolerated well. Prescriptions ordered this encounter Disp Refills Start End AZITHROMYCIN 250 MG TABLET 1 Pa* 0 04/29/2018 05/04/2018 Sig: Take 2 tablets day one, then, 1 tablet daily until gone. PREDNISONE 20 MG TABLET 6 ta* 0 04/29/2018 05/02/2018 Route: ORAL Sig: Take 2 tablets by mouth once daily for 3 days. Take daily with food. ALBUTEROL SULFATE 2.5 MG/3 ML (0.083* 04/29/2018 04/29/2018 Route: INHALATION Encounter Status:Closed by KYLAH LOPEZ on 04/29/18 PROGRESS Observed: 04/29/2018 Status: COMPLETED Source: PROSPECT 10:43 AM [facility] [place] REPOSITORY O ID: [id number] Author: Kylah ([facility]) John Service: (none) Author Type: Nurse Practitioner Type: Progress Notes Filed: 04/29/2018 11:31 AM Note Text: Subjective HPI Abdullahi Christie is a 47 year old male who presents with a cough for 2 weeks. He has had sick contacts in friends and family. He is currently taking doxycycline, was prescribed this in [facility] care 4 days ago. He feels this is not working. He states he coughs so much he cannot smoke. Review of Systems Constitutional: Positive for diaphoresis. Negative for fever. HENT: Positive for congestion. Negative for sore throat. Respiratory: Positive for cough, sputum production and shortness of breath. Cardiovascular: Negative. Negative for chest pain. Gastrointestinal: Negative. Negative for abdominal pain, diarrhea, nausea and vomiting. Neurological: Positive for headaches. BP 100/74 Pulse 98 Temp 36.2 ?C (97.1 ?F) (Left Tympanic) Resp 20 Wt 78 kg (172 lb) SpO2 96% BMI 25.96 kg/m? PAST MEDICAL HISTORY Diagnosis Date - Abnormal resting ECG findings 08/04/2014 - Acute hyperactive delirium due to another medical condition 01/19/2016 medication overdose - Adjustment disorder with depressed mood - Alcohol withdrawal (HCC) 09/21/2015 - Aspiration pneumonia ([facility]) 09/21/2015 with respiratory failure, CELIA - Esophageal reflux 07/08/2005 Small hiatal hernia - Male hypogonadism 01/04/2015 - Other, mixed, or unspecified nondependent drug abuse, unspecified 1989 - Paranoid schizophrenia, chronic condition ([facility]) [address] [facility] - Pericardial cyst 06/26/2014 - Polycythemia, secondary 01/31/2011 - Tobacco use disorder 09/25/2011 PAST SURGICAL HISTORY Procedure Laterality Date - NONE ALLERGIES Patient has no known allergies. MEDICATIONS doxycycline monohydrate (MONODOX) 100 mg capsule Take 1 capsule by mouth twice daily for 10 days. Omeprazole 40 mg capsule Take 1 capsule by mouth once daily. albuterol HFA (VENTOLIN HFA) 90 mcg/actuation inhaler Inhale 2 Puffs as instructed every 6 hours as needed (coughing,wheezing). fluticasone (FLOVENT HFA) 110 mcg/actuation inhaler Inhale 1 Puff as instructed twice daily. clotrimazole-betamethasone (LOTRISONE) cream Apply 1 application to affected area twice daily as needed. FANAPT 1 mg tab Take 1 tablet by mouth once daily. zolpidem (AMBIEN) 10 mg tab Take 1 tablet by mouth at bedtime as needed (insomnia). clonazePAM (KLONOPIN) 2 mg tablet Take 2 mg by mouth daily at bedtime. Per Psychiatry haloperidol (HALDOL) 10 mg tablet Take 2 tablets by mouth daily at bedtime. benztropine (COGENTIN) 2 mg tablet Take 1 tablet by mouth daily at bedtime. buPROPion SR (ZYBAN SR; WELLBUTRIN SR) 150 mg 12 hr tablet Take 1 tablet by mouth once daily. FAMILY HISTORY Problem Relation Age of Onset - Hypertension Father - Lipids Father - Cancer Mother Lung Social History Substance Use Topics - Smoking status: Current Every Day Smoker Packs/day: 1.00 Years: 35.00 Types: Cigars, Cigarettes - Smokeless tobacco: Former User Types: Snuff - Alcohol use 1.0 oz/week Comment: Once or twice a week Objective Physical Exam Constitutional: He is well-developed, well-nourished, and in no distress. Cardiovascular: Normal rate, regular rhythm and normal heart sounds. Pulmonary/Chest: Effort normal. No tachypnea. No respiratory distress. He has no decreased breath sounds. He has wheezes in the right upper field, the right middle field, the left upper field and the left middle field. He has no rales. SpO2 98% Post albuterol: SpO2 98% Neurological: He is alert. Skin: Skin is warm and dry. No rash noted. No erythema. Nursing note and vitals reviewed. ASSESSMENT/PLAN: 1. Lower resp. tract infection - ICD9: 519.8, ICD10: J22 (primary diagnosis) - AZITHROMYCIN 250 MG TABLET 2. Wheezing - ICD9: 786.07, ICD10: R06.2 - PREDNISONE 20 MG TABLET - ALBUTEROL SULFATE 2.5 MG/3 ML (0.083 %) SOLUTION FOR NEBULIZATION-given in office. - continue use of inhaler - Follow-up with your PCP in 3-5 days if symptoms have not improved or sooner if symptoms worsen - Discussed red flags and need for immediate medical evaluation if any occur. - Discussed supportive care treatment with fluids, rest and analgesia. - Discussed expected course of illness Kylah Lopez APRN.LIQUID SUGAR MELTER PROGRESS Observed: 04/24/2018 Status: COMPLETED Source: PROSPECT 11:24 AM [facility] [place] REPOSITORY [facility] ID: [id number] Author: Es Buckley Service: (none) Author Type: Physician Local Bulk Driver Type: Progress Notes Filed: 04/24/2018 12:05 PM Note Text: 04/24/2018 Patient presents with: Cough: sore throat, nasal congestion SUBJECTIVE: This is a 47 year old that is here today for Complaint(s) of cough and sore throat x 4 days. + nasal congestion. + everyday smoker. Notes sylvia e nasal congestion. + intermittent SOB/wheezing. Has tried abluterol which offers temporary relief. Denies fever/chills, vomiting, diarrhea, ear pain. PAST MEDICAL HISTORY Diagnosis Date - Abnormal resting ECG findings 08/04/2014 - Acute hyperactive delirium due to another medical condition 01/19/2016 medication overdose - Adjustment disorder with depressed mood - Alcohol withdrawal (HCC) 09/21/2015 - Aspiration pneumonia ([facility]) 09/21/2015 with respiratory failure, CELIA - Esophageal reflux 07/08/2005 Small hiatal hernia - Male hypogonadism 01/04/2015 - Other, mixed, or unspecified nondependent drug abuse, unspecified 1989 - Paranoid schizophrenia, chronic condition ([facility]) [address] [facility] - Pericardial cyst 06/26/2014 - Polycythemia, secondary 01/31/2011 - Tobacco use disorder 09/25/2011 ALLERGIES Patient has no known allergies. MEDICATIONS Current Outpatient Prescriptions: Omeprazole 40 mg capsule Take 1 capsule by mouth once daily. albuterol HFA (VENTOLIN HFA) 90 mcg/actuation inhaler Inhale 2 Puffs as instructed every 6 hours as needed (coughing,wheezing). fluticasone (FLOVENT HFA) 110 mcg/actuation inhaler Inhale 1 Puff as instructed twice daily. clotrimazole-betamethasone (LOTRISONE) cream Apply 1 application to affected area twice daily as needed. FANAPT 1 mg tab Take 1 tablet by mouth once daily. buPROPion SR (ZYBAN SR; WELLBUTRIN SR) 150 mg 12 hr tablet Take 1 tablet by mouth once daily. zolpidem (AMBIEN) 10 mg tab Take 1 tablet by mouth at bedtime as needed (insomnia). clonazePAM (KLONOPIN) 2 mg tablet Take 2 mg by mouth daily at bedtime. Per Psychiatry haloperidol (HALDOL) 10 mg tablet Take 2 tablets by mouth daily at bedtime. benztropine (COGENTIN) 2 mg tablet Take 1 tablet by mouth daily at bedtime. No current facility-administered medications for this visit. SOCIAL HISTORY Social History Marital status: Single Spouse name: Years of education: Number of children: Social History Main Topics Smoking status: Current Every Day Smoker Packs/day: 1.00 Years: 35.00 Types: Cigars, Cigarettes Smokeless tobacco: Former User Types: Snuff Alcohol use: Yes 1.0 oz/week Comment: Once or twice a week Drug use: Yes Comment: coccaine-past history Sexual activity: Yes Partners with: Female REVIEW OF SYSTEMS All other reviewed and negative other than HPI. OBJECTIVE: BP 96/60 Pulse 90 Temp 36.4 ?C (97.5 ?F) (Tympanic) Resp 18 Wt 80.7 kg (178 lb) SpO2 95% BMI 26.87 kg/m? APPEARANCE Well appearing, alert, in no acute distress, well-hydrated, well nourished. EYES PERRLA, conjunctiva and sclera normal. EARS External ears normal, canals clear. TMS normal AWA NOSE/SINUS Nares normal. Septum midline. Mucosa normal. No drainage or sinus tenderness. THROAT + posterior oropharyngeal erythema, no exudate. Uvula midline NECK Supple, no adenopathy; HEART RRR with normal S1 and S2 LUNG + AWA expiratory wheezes, + AWA rhonchi. No respiratory distress, no accessory muscle use. ASSESSMENT/PLAN: 1. Sore throat - ICD9: 462, ICD10: J02.9 (primary diagnosis) - Rapid Strep negative in the office today and Throat culture pending - The patient should follow up in 3-5 days if symptoms persist or worsen - Call back if drooling, increased temperature, symptoms of dehydration and/or still sick in one week - RAPID STREP TEST B/O 2. Wheezing - ICD9: 786.07, ICD10: R06.2 Albuterol at home prn - ALBUTEROL SULFATE 2.5 MG/3 ML (0.083 %) SOLUTION FOR NEBULIZATION 3. Lower respiratory infection - ICD9: 519.8, ICD10: J22 Supportive care with fluids and rest Recommend smoking cessation. - ALBUTEROL SULFATE 2.5 MG/3 ML (0.083 %) SOLUTION FOR NEBULIZATION - DOXYCYCLINE MONOHYDRATE 100 MG CAPSULE The patient indicates understanding of these issues and agrees with the plan. Reviewed red flags and when to seek care sooner. 4. Tobacco use disorder - ICD9: 305.1, ICD10: F17.200 - Cessation encouraged. - CONSULT TO SMOKING CESSATION NUPUR Strong Observed: 04/24/2018 Status: COMPLETED Source: PROSPECT 11:15 AM [facility] REPOSITORY Office Visit (WSTR) ABDULLAHI CHRISTIE ([id number]) 1970 M Date Time Provider Department 04/24/18 11:15 AM ES BUCKLEY) [facility] During your visit today, we recorded the following information about you: Temperature Pulse Respiration Blood pressure 97.5 degrees 90/minute 18/minute 96/60 Weight 80.7 kg Es Buckley PA-C 04/24/2018 12:05 PM Signed 04/24/2018 Patient presents with: Cough: sore throat, nasal congestion SUBJECTIVE: This is a 47 year old that is here today for Complaint(s) of cough and sore throat x 4 days. + nasal congestion. + everyday smoker. Notes sylvia e nasal congestion. + intermittent SOB/wheezing. Has tried abluterol which offers temporary relief. Denies fever/chills, vomiting, diarrhea, ear pain. PAST MEDICAL HISTORY Diagnosis Date - Abnormal resting ECG findings 08/04/2014 - Acute hyperactive delirium due to another medical condition 01/19/2016 medication overdose - Adjustment disorder with depressed mood - Alcohol withdrawal (HCC) 09/21/2015 - Aspiration pneumonia ([facility]) 09/21/2015 with respiratory failure, CELIA - Esophageal reflux 07/08/2005 Small hiatal hernia - Male hypogonadism 01/04/2015 - Other, mixed, or unspecified nondependent drug abuse, unspecified 1989 - Paranoid schizophrenia, chronic condition ([facility]) [address] [facility] - Pericardial cyst 06/26/2014 - Polycythemia, secondary 01/31/2011 - Tobacco use disorder 09/25/2011 ALLERGIES Patient has no known allergies. MEDICATIONS Current Outpatient Prescriptions: Omeprazole 40 mg capsule Take 1 capsule by mouth once daily. albuterol HFA (VENTOLIN HFA) 90 mcg/actuation inhaler Inhale 2 Puffs as instructed every 6 hours as needed (coughing,wheezing). fluticasone (FLOVENT HFA) 110 mcg/actuation inhaler Inhale 1 Puff as instructed twice daily. clotrimazole-betamethasone (LOTRISONE) cream Apply 1 application to affected area twice daily as needed. FANAPT 1 mg tab Take 1 tablet by mouth once daily. buPROPion SR (ZYBAN SR; WELLBUTRIN SR) 150 mg 12 hr tablet Take 1 tablet by mouth once daily. zolpidem (AMBIEN) 10 mg tab Take 1 tablet by mouth at bedtime as needed (insomnia). clonazePAM (KLONOPIN) 2 mg tablet Take 2 mg by mouth daily at bedtime. Per Psychiatry haloperidol (HALDOL) 10 mg tablet Take 2 tablets by mouth daily at bedtime. benztropine (COGENTIN) 2 mg tablet Take 1 tablet by mouth daily at bedtime. No current facility-administered medications for this visit. SOCIAL HISTORY Social History Marital status: Single Spouse name: Years of education: Number of children: Social History Main Topics Smoking status: Current Every Day Smoker Packs/day: 1.00 Years: 35.00 Types: Cigars, Cigarettes Smokeless tobacco: Former User Types: Snuff Alcohol use: Yes 1.0 oz/week Comment: Once or twice a week Drug use: Yes Comment: coccaine-past history Sexual activity: Yes Partners with: Female REVIEW OF SYSTEMS All other reviewed and negative other than HPI. OBJECTIVE: BP 96/60 Pulse 90 Temp 36.4 ?C (97.5 ?F) (Tympanic) Resp 18 Wt 80.7 kg (178 lb) SpO2 95% BMI 26.87 kg/m? APPEARANCE Well appearing, alert, in no acute distress, well- hydrated, well nourished. EYES PERRLA, conjunctiva and sclera normal. EARS External ears normal, canals clear. TMS normal AWA NOSE/SINUS Nares normal. Septum midline. Mucosa normal. No drainage or sinus tenderness. THROAT + posterior oropharyngeal erythema, no exudate. Uvula midline NECK Supple, no adenopathy; HEART RRR with normal S1 and S2 LUNG + AWA expiratory wheezes, + AWA rhonchi. No respiratory distress, no accessory muscle use. ASSESSMENT/PLAN: 1. Sore throat - ICD9: 462, ICD10: J02.9 (primary diagnosis) - Rapid Strep negative in the office today and Throat culture pending - The patient should follow up in 3-5 days if symptoms persist or worsen - Call back if drooling, increased temperature, symptoms of dehydration and/or still sick in one week - RAPID STREP TEST B/O 2. Wheezing - ICD9: 786.07, ICD10: R06.2 Albuterol at home prn - ALBUTEROL SULFATE 2.5 MG/3 ML (0.083 %) SOLUTION FOR NEBULIZATION 3. Lower respiratory infection - ICD9: 519.8, ICD10: J22 Supportive care with fluids and rest Recommend smoking cessation. - ALBUTEROL SULFATE 2.5 MG/3 ML (0.083 %) SOLUTION FOR NEBULIZATION - DOXYCYCLINE MONOHYDRATE 100 MG CAPSULE The patient indicates understanding of these issues and agrees with the plan. Reviewed red flags and when to seek care sooner. 4. Tobacco use disorder - ICD9: 305.1, ICD10: F17.200 - Cessation encouraged. - CONSULT TO SMOKING CESSATION NUPUR Strong Ma 04/24/2018 11:46 AM Signed 2.5 solution aerosol treatment given per doctor's orders. Prior to treatment O2 Sat is 95%. Treatment completed. O2 sat is 95%. Tolerated well. Referring Provider: SELF [[id number]] Allergies As of Date: 04/24/2018 (No Known Allergies) Date Reviewed: 04/24/2018 Reviewed by: Indira Mena Ma - Fully Assessed Reason for Visit: Cough [28] Cmt: sore throat, nasal congestion Primary Visit Diagnosis:Sore throat [J02.9] Other Visit Diagnoses:Wheezing [R06.2] Lower respiratory infection [J22] Tobacco use disorder [F17.200] Order(s):RAPID STREP TEST B/O [[id number]] Order #: [id number] [] albuterol 2.5 mg /3 mL (0.083 %) 2.5 mg (PROVENTIL)Disp: Rfl: doxycycline monohydrate (MONODOX) 100 mg capsuleTake 1 capsule by mouth twice daily for 10 days.Disp: 20 capsuleRfl: 0 CONSULT TO SMOKING CESSATION [[id number]] Order #: [id number]: 1 Prescriptions as of 04/24/2018 Sig: OMEPRAZOLE 40 MG CAPSULE,CHRISTOPHER* Take 1 capsule by mouth once * ALBUTEROL SULFATE HFA 90 MCG/* Inhale 2 Puffs as instructed * FLUTICASONE 110 MCG/ACTUATION* Inhale 1 Puff as instructed t* CLOTRIMAZOLE-BETAMETHASONE 1 * Apply 1 application to affect* FANAPT 1 MG TABLET Take 1 tablet by mouth once d* BUPROPION HCL SR 150 MG TABLE* Take 1 tablet by mouth once d* ZOLPIDEM 10 MG TABLET Take 1 tablet by mouth at bed* CLONAZEPAM 2 MG TABLET Take 2 mg by mouth daily at b* HALOPERIDOL 10 MG TABLET Take 2 tablets by mouth daily* BENZTROPINE 2 MG TABLET Take 1 tablet by mouth daily * DOXYCYCLINE MONOHYDRATE 100 M* Take 1 capsule by mouth twice* Problem List As Of Date 04/24/2018 Noted Resolved DRUG ABUSE NEC-UNSPEC [F19.10] PARANOID SCHIZO-CHRONIC [F20.0] More... ADJUSTMENT DISORDER WITH DEPRESSED MOOD [F43.21] ESOPHAGEAL REFLUX [K21.9] INVALID FOR* Impotence of organic origin [N52.9] INVALID FOR*09/25/2011 Knee pain, left [M25.562] INVALID FOR*04/03/2016 More... Tobacco use disorder [F17.200] INVALID FOR* Polycythemia, secondary [D75.1] INVALID FOR*10/18/2015 Erectile dysfunction [N52.9] INVALID FOR* Pericardial cyst [Q24.8] INVALID FOR*10/18/2015 Abnormal resting ECG findings [R94.31] INVALID FOR*03/04/2018 Mixed hyperlipidemia [E78.2] INVALID FOR* Bronchitis [J40] INVALID FOR* Male hypogonadism [E29.1] INVALID FOR*04/03/2016 Alcoholism (HCC) [F10.20] INVALID FOR* Visit Notes: >> Hermelinda Foster Ma Sat Apr 24, 2018 11:39 AM Status: Signed 2.5 solution aerosol treatment given per doctor's orders. Prior to treatment O2 Sat is 95%. Treatment completed. O2 sat is 95%. Tolerated well. Prescriptions ordered this encounter Disp Refills Start End ALBUTEROL SULFATE 2.5 MG/3 ML (0.083* 04/24/2018 04/24/2018 Route: INHALATION DOXYCYCLINE MONOHYDRATE 100 MG CAPSU* 20 c* 0 04/24/2018 05/04/2018 Route: ORAL Sig: Take 1 capsule by mouth twice daily for 10 days. Encounter Status:Closed by ES BUCKLEY PA-C on 04/24/18 PROGRESS Observed: 03/04/2018 Status: COMPLETED Source: PROSPECT 10:33 AM [facility] REPOSITORY HNO ID: [id number] Author: Onur Yao Service: (none) Author Type: Physician Type: Progress Notes Filed: 03/04/2018 10:38 AM Note Text: This note was created using [employer]. Subjective Abdullahi Christie is a 47 year old male was here for follow up. Bronchitis was stable. He continued to smoke. He needed refills. GERD was controlled. He relapsed into alcohol and substance use. He declined referral for recovery programs. He was thinking of moving back to [place]. He continued with rash in his lower abdomen. We discussed this may possibly be metal allergy, which he has a history of in the past. ACTIVE PROBLEM LIST Other, Mixed, Or Unspecified Nondependent Drug Abuse, Unspecified Paranoid Schizophrenia, Chronic Condition (Hcc) Adjustment Disorder With Depressed Mood Esophageal Reflux Tobacco Use Disorder Erectile Dysfunction Abnormal Resting Ecg Findings Mixed Hyperlipidemia Bronchitis Alcoholism (Hcc) Review of Systems Constitutional: Negative. Respiratory: Negative. Cardiovascular: Negative. Gastrointestinal: Negative. Skin: Positive for rash. Objective BP 120/68 (BP Site: Right Arm, BP Position: Sitting, BP Cuff Size: Regular Adult) Pulse 80 Temp 36.3 ?C (97.3 ?F) (Temporal Artery) Resp 20 Wt 84.8 kg (187 lb) BMI 28.23 kg/m? Physical Exam Constitutional: No distress. Eyes: Conjunctivae are normal. No scleral icterus. Cardiovascular: Normal heart sounds. Pulmonary/Chest: He has no wheezes. He has no rales. Musculoskeletal: He exhibits no edema. Skin: Localized rash in his lower abdomen above his belt buckle. Assessment and Plan 1. Irritant contact dermatitis, unspecified trigger - ICD9: 692.9, ICD10: L24.9 (primary diagnosis) - discussed skin care of rash - Change belt or buckle. - CLOTRIMAZOLE-BETAMETHASONE 1 %-0.05 % TOPICAL CREAM 2. Gastroesophageal reflux disease, esophagitis presence not specified - ICD9: 530.81, ICD10: K21.9 Controlled. - OMEPRAZOLE 40 MG CAPSULE,DELAYED RELEASE 3. Bronchitis - ICD9: 490, ICD10: J40 Stable. - ALBUTEROL SULFATE HFA 90 MCG/ACTUATION AEROSOL INHALER - FLUTICASONE 110 MCG/ACTUATION HFA AEROSOL INHALER 4. Mixed hyperlipidemia - ICD9: 272.2, ICD10: E78.2 Screen for diabetes. He declined any venipuncture. - GLUCOSE, BLOOD (POC) 5. Alcoholism (HCC) - ICD9: 303.90, ICD10: F10.20 He declined referral. 6. Paranoid schizophrenia, chronic condition (HCC) - ICD9: 295.32, ICD10: F20.0 Medication list updated per Dr. Bar[facility]. - FANAPT 1 MG TABLET Onur Yao MD CNOV Observed: 03/04/2018 Status: COMPLETED Source: PROSPECT 9:40 AM [facility] REPOSITORY Office Visit (INTMWS) ABDULLAHI CHRISTIE ([id number]) 1970 M Date Time Provider Department 03/04/18 9:40 AM ONUR YAO [facility] During your visit today, we recorded the following information about you: Temperature Pulse Respiration Blood pressure 97.3 degrees 80/minute 20/minute 120/68 Weight 84.8 kg Onur Yao MD 03/04/2018 10:38 AM Signed This note was created using [employer]. Subjective Abdullahi Christie is a 47 year old male was here for follow up. Bronchitis was stable. He continued to smoke. He needed refills. GERD was controlled. He relapsed into alcohol and substance use. He declined referral for recovery programs. He was thinking of moving back to [place]. He continued with rash in his lower abdomen. We discussed this may possibly be metal allergy, which he has a history of in the past. ACTIVE PROBLEM LIST Other, Mixed, Or Unspecified Nondependent Drug Abuse, Unspecified Paranoid Schizophrenia, Chronic Condition (Hcc) Adjustment Disorder With Depressed Mood Esophageal Reflux Tobacco Use Disorder Erectile Dysfunction Abnormal Resting Ecg Findings Mixed Hyperlipidemia Bronchitis Alcoholism (Hcc) Review of Systems Constitutional: Negative. Respiratory: Negative. Cardiovascular: Negative. Gastrointestinal: Negative. Skin: Positive for rash. Objective BP 120/68 (BP Site: Right Arm, BP Position: Sitting, BP Cuff Size: Regular Adult) Pulse 80 Temp 36.3 ?C (97.3 ?F) (Temporal Artery) Resp 20 Wt 84.8 kg (187 lb) BMI 28.23 kg/m? Physical Exam Constitutional: No distress. Eyes: Conjunctivae are normal. No scleral icterus. Cardiovascular: Normal heart sounds. Pulmonary/Chest: He has no wheezes. He has no rales. Musculoskeletal: He exhibits no edema. Skin: Localized rash in his lower abdomen above his belt buckle. Assessment and Plan 1. Irritant contact dermatitis, unspecified trigger - ICD9: 692.9, ICD10: L24.9 (primary diagnosis) - discussed skin care of rash - Change belt or buckle. - CLOTRIMAZOLE-BETAMETHASONE 1 %-0.05 % TOPICAL CREAM 2. Gastroesophageal reflux disease, esophagitis presence not specified - ICD9: 530.81, ICD10: K21.9 Controlled. - OMEPRAZOLE 40 MG CAPSULE,DELAYED RELEASE 3. Bronchitis - ICD9: 490, ICD10: J40 Stable. - ALBUTEROL SULFATE HFA 90 MCG/ACTUATION AEROSOL INHALER - FLUTICASONE 110 MCG/ACTUATION HFA AEROSOL INHALER 4. Mixed hyperlipidemia - ICD9: 272.2, ICD10: E78.2 Screen for diabetes. He declined any venipuncture. - GLUCOSE, BLOOD (POC) 5. Alcoholism (HCC) - ICD9: 303.90, ICD10: F10.20 He declined referral. 6. Paranoid schizophrenia, chronic condition (HCC) - ICD9: 295.32, ICD10: F20.0 Medication list updated per Dr[facility] Barrera[facility]. - FANAPT 1 MG TABLET Onur Yao MD Referring Provider: ONUR YAO [[id number]] Allergies As of Date: 03/04/2018 (No Known Allergies) Date Reviewed: 03/04/2018 Reviewed by: Blank Blanco LPN - Fully Assessed Reason for Visit: F/U 6 Month [444] Primary Visit Diagnosis:Irritant contact dermatitis, unspecified trigger [L24.9] Other Visit Diagnoses:Gastroesophageal reflux disease, esophagitis presence not specified [K21.9] Bronchitis [J40] Mixed hyperlipidemia [E78.2] Alcoholism (HCC) [F10.20] Paranoid schizophrenia, chronic condition (HCC) [F20.0] Order(s):Omeprazole 40 mg capsuleTake 1 capsule by mouth once daily.Disp: 30 capsuleRfl: 5 albuterol HFA (VENTOLIN HFA) 90 mcg/actuation inhalerInhale 2 Puffs as instructed every 6 hours as needed (coughing,wheezing).Disp: 1 InhalerRfl: 5 fluticasone (FLOVENT HFA) 110 mcg/actuation inhalerInhale 1 Puff as instructed twice daily.Disp: 1 InhalerRfl: 5 GLUCOSE, BLOOD (POC) [[id number]] Order #: [id number] clotrimazole-betamethasone (LOTRISONE) creamApply 1 application to affected area twice daily as needed.Disp: 45 gRfl: 0 Prescriptions as of 03/04/2018 Sig: OMEPRAZOLE 40 MG CAPSULE,CHRISTOPHER* Take 1 capsule by mouth once * ALBUTEROL SULFATE HFA 90 MCG/* Inhale 2 Puffs as instructed * FLUTICASONE 110 MCG/ACTUATION* Inhale 1 Puff as instructed t* ZOLPIDEM 10 MG TABLET Take 1 tablet by mouth at bed* CLONAZEPAM 2 MG TABLET Take 2 mg by mouth daily at b* HALOPERIDOL 10 MG TABLET Take 2 tablets by mouth daily* BENZTROPINE 2 MG TABLET Take 1 tablet by mouth daily * CLOTRIMAZOLE-BETAMETHASONE 1 * Apply 1 application to affect* FANAPT 1 MG TABLET Take 1 tablet by mouth once d* BUPROPION HCL SR 150 MG TABLE* Take 1 tablet by mouth once d* Problem List As Of Date 03/04/2018 Noted Resolved DRUG ABUSE NEC-UNSPEC [F19.10] PARANOID SCHIZO-CHRONIC [F20.0] More... ADJUSTMENT DISORDER WITH DEPRESSED MOOD [F43.21] ESOPHAGEAL REFLUX [K21.9] INVALID FOR* Impotence of organic origin [N52.9] INVALID FOR*09/25/2011 Knee pain, left [M25.562] INVALID FOR*04/03/2016 More... Tobacco use disorder [F17.200] INVALID FOR* Polycythemia, secondary [D75.1] INVALID FOR*10/18/2015 Erectile dysfunction [N52.9] INVALID FOR* Pericardial cyst [Q24.8] INVALID FOR*10/18/2015 Abnormal resting ECG findings [R94.31] INVALID FOR*03/04/2018 Mixed hyperlipidemia [E78.2] INVALID FOR* Bronchitis [J40] INVALID FOR* Male hypogonadism [E29.1] INVALID FOR*04/03/2016 Alcoholism (HCC) [F10.20] INVALID FOR* Prescriptions ordered this encounter Disp Refills Start End OMEPRAZOLE 40 MG CAPSULE,DELAYED REL* 30 c* 5 03/04/2018 Route: ORAL Sig: Take 1 capsule by mouth once daily. ALBUTEROL SULFATE HFA 90 MCG/ACTUATI* 1 In* 5 03/04/2018 Route: INHALATION Sig: Inhale 2 Puffs as instructed every 6 hours as needed (coughing,wheezing). FLUTICASONE 110 MCG/ACTUATION HFA AE* 1 In* 5 03/04/2018 Route: INHALATION Sig: Inhale 1 Puff as instructed twice daily. CLOTRIMAZOLE-BETAMETHASONE 1 %-0.05 * 45 g 0 03/04/2018 Route: TOPICAL Sig: Apply 1 application to affected area twice daily as needed. Medications Discontinued During This Encounter triamcinolone acetonide (KENALOG) 0.* 60 g 1 11/24/2017 03/04/2018 Route: TOPICAL Sig: Apply 1 application to affected area three times daily. Apply sparingly to area for rash/itching. Disc: Course of therapy completed Omeprazole 40 mg capsule 30 c* 0 02/23/2018 03/04/2018 Cmt: Maximum Refills Reached Sig: TAKE 1 CAPSULE BY MOUTH DAILY Disc: Reason for discontinue is not on file. albuterol HFA (VENTOLIN HFA) 90 mcg/* 1 In* 2 09/04/2017 03/04/2018 Route: INHALATION Sig: Inhale 2 Puffs as instructed every 6 hours as needed (coughing,wheezing). Disc: Reason for discontinue is not on file. fluticasone (FLOVENT HFA) 110 mcg/ac* 1 In* 2 09/04/2017 03/04/2018 Route: INHALATION Sig: Inhale 1 Puff as instructed twice daily. Disc: Reason for discontinue is not on file. naproxen (NAPROSYN) 500 mg tablet 60 t* 0 07/14/2017 03/04/2018 Route: ORAL Sig: Take 1 tablet by mouth twice daily as needed (for pain/inflammation). Take with food. Disc: Reason for discontinue is not on file. Disposition: Return in about 6 months (around 09/04/2018). Follow-up and Disposition History Recorded Encounter Status:Closed by ONUR YAO MD on 03/04/18 KRISTAN Observed: 02/16/2018 Status: COMPLETED Source: PROSPECT 12:00 AM [facility] REPOSITORY Patient Outreach (INTMWH) ABDULLAHI CHRISTIE ([id number]) 1970 M Date Time Provider Department 02/16/18 ONUR YAO COUNTS INCLUDE 234 BEDS AT THE [facility] During your visit today, we recorded the following information about you: Allergies As of Date: 02/16/2018 (No Known Allergies) Date Reviewed: 11/24/2017 Reviewed by: Sully Gamino Broker - Fully Assessed Visit Diagnosis:Medication management [Z79.899] Order(s):LIPID PANEL BASIC [SQLIPB] Order #: [id number] FUTURE Prescriptions as of 02/16/2018 Sig: X TRIAMCINOLONE ACETONIDE 0.1 %* Apply 1 application to affect* X ALBUTEROL SULFATE HFA 90 MCG/* Inhale 2 Puffs as instructed * X FLUTICASONE 110 MCG/ACTUATION* Inhale 1 Puff as instructed t* X NAPROXEN 500 MG TABLET Take 1 tablet by mouth twice * X OMEPRAZOLE 40 MG CAPSULE,CHRISTOPHER* Take 1 capsule by mouth once * BUPROPION HCL SR 150 MG TABLE* Take 1 tablet by mouth once d* ZOLPIDEM 10 MG TABLET Take 1 tablet by mouth at bed* CLONAZEPAM 2 MG TABLET Take 2 mg by mouth daily at b* HALOPERIDOL 10 MG TABLET Take 2 tablets by mouth daily* BENZTROPINE 2 MG TABLET Take 1 tablet by mouth daily * Problem List As Of Date 02/16/2018 Noted Resolved DRUG ABUSE NEC-UNSPEC [F19.10] PARANOID SCHIZO-CHRONIC [F20.0] More... ADJUSTMENT DISORDER WITH DEPRESSED MOOD [F43.21] ESOPHAGEAL REFLUX [K21.9] INVALID FOR* Impotence of organic origin [N52.9] INVALID FOR*09/25/2011 Knee pain, left [M25.562] INVALID FOR*04/03/2016 More... Tobacco use disorder [F17.200] INVALID FOR* Polycythemia, secondary [D75.1] INVALID FOR*10/18/2015 Erectile dysfunction [N52.9] INVALID FOR* Pericardial cyst [Q24.8] INVALID FOR*10/18/2015 Abnormal resting ECG findings [R94.31] INVALID FOR* Mixed hyperlipidemia [E78.2] INVALID FOR* Bronchitis [J40] INVALID FOR* Male hypogonadism [E29.1] INVALID FOR*04/03/2016 Alcoholism (HCC) [F10.20] INVALID FOR* Encounter Status:Closed by ELEN SESAY on 04/30/18 PROGRESS Observed: 11/24/2017 Status: COMPLETED Source: PROSPECT 8:39 AM [facility] [place] REPOSITORY O ID: [id number] Author: Elinor Ho (Rolling Attendant) Service: (none) Author Type: Nurse Practitioner Type: Progress Notes Filed: 11/24/2017 8:46 AM Note Text: CC: Patient presents with: rash x 2 years HPI Abdullahi Christie is a 47 year old male who presents today for rash to lower abdomen. Initially reported present for two years but now saying it has been there for the past 6 years. Has never had addressed by PCP or cigarette examiner. Rash is constant, only across lower abdomen at the belt line. A little itchy, no pain. Has not been getting any worse or better. Has treated with Vaseline hand lotion which didn't help. REVIEW OF SYSTEMS See HPI PAST MEDICAL HISTORY Diagnosis Date - Acute hyperactive delirium due to another medical condition 01/19/2016 medication overdose - Adjustment disorder with depressed mood - Alcohol withdrawal (HCC) 09/21/2015 - Aspiration pneumonia (HCC) 09/21/2015 with respiratory failure, CELIA - Esophageal reflux 07/08/2005 Small hiatal hernia - Male hypogonadism 01/04/2015 - Other, mixed, or unspecified nondependent drug abuse, unspecified 1989 - Paranoid schizophrenia, chronic condition (HCC) [address] [place] [address] - Pericardial cyst 06/26/2014 - Polycythemia, secondary 01/31/2011 - Tobacco use disorder 09/25/2011 PAST SURGICAL HISTORY Procedure Laterality Date - NONE ALLERGIES Patient has no known allergies. MEDICATIONS albuterol HFA (VENTOLIN HFA) 90 mcg/actuation inhaler Inhale 2 Puffs as instructed every 6 hours as needed (coughing,wheezing). fluticasone (FLOVENT HFA) 110 mcg/actuation inhaler Inhale 1 Puff as instructed twice daily. Omeprazole 40 mg capsule Take 1 capsule by mouth once daily. zolpidem (AMBIEN) 10 mg tab Take 1 tablet by mouth at bedtime as needed (insomnia). clonazePAM (KLONOPIN) 2 mg tablet Take 2 mg by mouth daily at bedtime. Per Psychiatry haloperidol (HALDOL) 10 mg tablet Take 2 tablets by mouth daily at bedtime. benztropine (COGENTIN) 2 mg tablet Take 1 tablet by mouth daily at bedtime. naproxen (NAPROSYN) 500 mg tablet Take 1 tablet by mouth twice daily as needed (for pain/inflammation). Take with food. buPROPion SR (ZYBAN SR; WELLBUTRIN SR) 150 mg 12 hr tablet Take 1 tablet by mouth once daily. FAMILY HISTORY Problem Relation Age of Onset - Hypertension Father - Lipids Father - Cancer Mother Lung Social History Substance Use Topics - Smoking status: Current Every Day Smoker Packs/day: 1.50 Years: 35.00 Types: Cigars, Cigarettes - Smokeless tobacco: Former User Types: Snuff - Alcohol use 1.0 oz/week Comment: Once or twice a week PHYSICAL EXAM BP 110/80 Pulse 102 Temp 36.2 ?C (97.2 ?F) (Temporal Artery) Resp 16 Wt 88.5 kg (195 lb) SpO2 98% BMI 29.43 kg/m? General Appearance: well appearing, in no acute distress, alert Skin: Lower abdomen: Red excoriations. No pustules or open areas. ASSESSMENT/PLAN: 1. Rash and nonspecific skin eruption - ICD9: 782.1, ICD10: R21 Consistent with dermatitis, likely from pants rubbing across lower abdomen - Topical steriod tx with Rx for steriod cream/ointment- see orders - discussed skin care of rash - follow up in 2-4 weeks if symptoms persist or worsen. Prescription instructions reviewed with patient as applicable. Potential red flag symptoms discussed with the patient. Reviewed appropriate action plan to take if red flag symptoms occur. Patient agreeable to treatment plan. Elinor Ho APRN.CNP CNOV Observed: 11/24/2017 Status: COMPLETED Source: PROSPECT 8:20 AM [facility] REPOSITORY Office Visit (INTMWS) ABDULLAHI CHRISTIE ([id number]) 1970 M Date Time Provider Department 11/24/17 8:20 AM ELINOR HO (ADRIANA) INTMWS During your visit today, we recorded the following information about you: Temperature Pulse Respiration Blood pressure 97.2 degrees 102/minute 16/minute 110/80 Weight 88.5 kg Eilnor Ho) 11/24/2017 8:46 AM Signed CC: Patient presents with: rash x 2 years HPI Abdullahiyaa Christie is a 47 year old male who presents today for rash to lower abdomen. Initially reported present for two years but now saying it has been there for the past 6 years. Has never had addressed by PCP or cigarette examiner. Rash is constant, only across lower abdomen at the belt line. A little itchy, no pain. Has not been getting any worse or better. Has treated with Vaseline hand lotion which didn't help. REVIEW OF SYSTEMS See [facility] PAST MEDICAL HISTORY Diagnosis Date - Acute hyperactive delirium due to another medical condition 01/19/2016 medication overdose - Adjustment disorder with depressed mood - Alcohol withdrawal (HCC) 09/21/2015 - Aspiration pneumonia ([facility]) 09/21/2015 with respiratory failure, CELIA - Esophageal reflux 07/08/2005 Small hiatal hernia - Male hypogonadism 01/04/2015 - Other, mixed, or unspecified nondependent drug abuse, unspecified 1989 - Paranoid schizophrenia, chronic condition ([facility]) [address] [facility] - Pericardial cyst 06/26/2014 - Polycythemia, secondary 01/31/2011 - Tobacco use disorder 09/25/2011 PAST SURGICAL HISTORY Procedure Laterality Date - NONE ALLERGIES Patient has no known allergies. MEDICATIONS albuterol HFA (VENTOLIN HFA) 90 mcg/actuation inhaler Inhale 2 Puffs as instructed every 6 hours as needed (coughing,wheezing). fluticasone (FLOVENT HFA) 110 mcg/actuation inhaler Inhale 1 Puff as instructed twice daily. Omeprazole 40 mg capsule Take 1 capsule by mouth once daily. zolpidem (AMBIEN) 10 mg tab Take 1 tablet by mouth at bedtime as needed (insomnia). clonazePAM (KLONOPIN) 2 mg tablet Take 2 mg by mouth daily at bedtime. Per Psychiatry haloperidol (HALDOL) 10 mg tablet Take 2 tablets by mouth daily at bedtime. benztropine (COGENTIN) 2 mg tablet Take 1 tablet by mouth daily at bedtime. naproxen (NAPROSYN) 500 mg tablet Take 1 tablet by mouth twice daily as needed (for pain/inflammation). Take with food. buPROPion SR (ZYBAN SR; WELLBUTRIN SR) 150 mg 12 hr tablet Take 1 tablet by mouth once daily. FAMILY HISTORY Problem Relation Age of Onset - Hypertension Father - Lipids Father - Cancer Mother Lung Social History Substance Use Topics - Smoking status: Current Every Day Smoker Packs/day: 1.50 Years: 35.00 Types: Cigars, Cigarettes - Smokeless tobacco: Former User Types: Snuff - Alcohol use 1.0 oz/week Comment: Once or twice a week PHYSICAL EXAM BP 110/80 Pulse 102 Temp 36.2 ?C (97.2 ?F) (Temporal Artery) Resp 16 Wt 88.5 kg (195 lb) SpO2 98% BMI 29.43 kg/m? General Appearance: well appearing, in no acute distress, alert Skin: Lower abdomen: Red excoriations. No pustules or open areas. ASSESSMENT/PLAN: 1. Rash and nonspecific skin eruption - ICD9: 782.1, ICD10: R21 Consistent with dermatitis, likely from pants rubbing across lower abdomen - Topical steriod tx with Rx for steriod cream/ointment- see orders - discussed skin care of rash - follow up in 2-4 weeks if symptoms persist or worsen. Prescription instructions reviewed with patient as applicable. Potential red flag symptoms discussed with the patient. Reviewed appropriate action plan to take if red flag symptoms occur. Patient agreeable to treatment plan. Elinor Ho APRN.Elinor Santiago (Adriana) 11/24/2017 8:42 AM Signed Follow-up in office in two to four weeks if no improvement in rash Referring Provider: SELF [[id number]] Allergies As of Date: 11/24/2017 (No Known Allergies) Date Reviewed: 11/24/2017 Reviewed by: Sully Gamino Cma - Fully Assessed Reason for Visit: rash x 2 years [Other] Primary Visit Diagnosis:Rash and nonspecific skin eruption [R21] Order(s):triamcinolone acetonide (KENALOG) 0.1 % creamApply 1 application to affected area three times daily. Apply sparingly to area for rash/itching.Disp: 60 gRfl: 1 Prescriptions as of 11/24/2017 Sig: ALBUTEROL SULFATE HFA 90 MCG/* Inhale 2 Puffs as instructed * FLUTICASONE 110 MCG/ACTUATION* Inhale 1 Puff as instructed t* OMEPRAZOLE 40 MG CAPSULE,CHRISTOPHER* Take 1 capsule by mouth once * ZOLPIDEM 10 MG TABLET Take 1 tablet by mouth at bed* CLONAZEPAM 2 MG TABLET Take 2 mg by mouth daily at b* HALOPERIDOL 10 MG TABLET Take 2 tablets by mouth daily* BENZTROPINE 2 MG TABLET Take 1 tablet by mouth daily * TRIAMCINOLONE ACETONIDE 0.1 %* Apply 1 application to affect* NAPROXEN 500 MG TABLET Take 1 tablet by mouth twice * BUPROPION HCL SR 150 MG TABLE* Take 1 tablet by mouth once d* Problem List As Of Date 11/24/2017 Noted Resolved DRUG ABUSE NEC-UNSPEC [F19.10] PARANOID SCHIZO-CHRONIC [F20.0] More... ADJUSTMENT DISORDER WITH DEPRESSED MOOD [F43.21] ESOPHAGEAL REFLUX [K21.9] INVALID FOR* Impotence of organic origin [N52.9] INVALID FOR*09/25/2011 Knee pain, left [M25.562] INVALID FOR*04/03/2016 More... Tobacco use disorder [F17.200] INVALID FOR* Polycythemia, secondary [D75.1] INVALID FOR*10/18/2015 Erectile dysfunction [N52.9] INVALID FOR* Pericardial cyst [Q24.8] INVALID FOR*10/18/2015 Abnormal resting ECG findings [R94.31] INVALID FOR* Mixed hyperlipidemia [E78.2] INVALID FOR* Bronchitis [J40] INVALID FOR* Male hypogonadism [E29.1] INVALID FOR*04/03/2016 Alcoholism (HCC) [F10.20] INVALID FOR* Other instructions from your clinician: Follow-up in office in two to four weeks if no improvement in rash Prescriptions ordered this encounter Disp Refills Start End TRIAMCINOLONE ACETONIDE 0.1 % TOPICA* 60 g 1 11/24/2017 Route: TOPICAL Sig: Apply 1 application to affected area three times daily. Apply sparingly to area for rash/itching. Encounter Status:Closed by ELINOR HO CNP on 11/24/17 PROGRESS Observed: 09/04/2017 Status: COMPLETED Source: PROSPECT 8:20 AM [facility] [place] REPOSITORY HNO ID: [id number] Author: Onur Yao Service: (none) Author Type: Physician Type: Progress Notes Filed: 09/04/2017 8:24 AM Note Text: This note was created using Needish. Subjective Abdullahi Christie is a 47 year old male here for bronchitis. He continued to smoke and had no desire to quit. He was using albuterol only as needed. His spirometry was consistent with asthma. He had symptoms of coughing, wheezing, shortness of breath once or twice a week, not severe. ACTIVE PROBLEM LIST Other, Mixed, Or Unspecified Nondependent Drug Abuse, Unspecified Paranoid Schizophrenia, Chronic Condition (Hcc) Adjustment Disorder With Depressed Mood Esophageal Reflux Tobacco Use Disorder Erectile Dysfunction Abnormal Resting Ecg Findings Mixed Hyperlipidemia Bronchitis Alcoholism (Hcc) Review of Systems Constitutional: Negative. HENT: Negative. Respiratory: Positive for cough, shortness of breath and wheezing. Objective BP 100/68 Pulse 84 Temp 36.4 ?C (97.6 ?F) (Tympanic) Wt 97.1 kg (214 lb) SpO2 96% BMI 32.3 kg/m2 Physical Exam Constitutional: No distress. Pulmonary/Chest: No respiratory distress. He has no decreased breath sounds. He has wheezes in the right lower field. He has no rhonchi. He has no rales. ASSESSMENT/PLAN: 1. Bronchitis - ICD9: 490, ICD10: J40 (primary diagnosis) Asthmatic. Options discussed of adding maintenance inhaler. - ALBUTEROL SULFATE HFA 90 MCG/ACTUATION AEROSOL INHALER - FLUTICASONE 110 MCG/ACTUATION HFA AEROSOL INHALER Discussed medication dosage, usage, goals of therapy, and side effects. Gargle after each use. 2. Tobacco use disorder - ICD9: 305.1, ICD10: F17.200 - Cessation encouraged. Onur Yao MD ALLERGIES ALLERGIES DATE TYPE / CODE NAME / CODE REACTION SEVERITY SOURCE 08/07/2018 Drug No Known Unknown [facility] Allergy/416 Allergies/F99717 Hospital 028414(SNOM 0388(RXNORM) Repository ED CT) Drug NO KNOWN [facility] Class/62768 ALLERGIES [place] 1003(SNOMED Repository CT) ENCOUNTERS ENCOUNTERS ADMIT/DISCHARGE ACCOUNT ADMITTING ENCOUNTER LOCATION SOURCE NUMBER CLASS 08/07/2018/08/07/19 [id number] Emergency [address] ing:ED Repository 06/24/2018/06/25/20 [id number] Ambulatory [address] [place] Repository 05/25/2018/05/26/20 [id number] Ambulatory [address] [place] Repository 04/29/2018/04/29/20 [id number] Ambulatory [address] [place] Repository 04/24/2018/04/27/20 [id number] Ambulatory [address] [place] Repository 03/04/2018/03/04/20 [id number] Ambulatory [address] [place] Repository 11/24/2017/11/26/19 [id number] Ambulatory [address] [place] Repository 09/04/2017/09/04/19 [id number] Ambulatory [address] Repository PAYERS PAYERS ENCOUNTER GUARANTOR PAYER SUBSCRIBER SOURCE 08/07/2018 ABDULLAHI Garcia Primary ABDULLAHI Simpson [id number] [place] Insurance:CARESOURCEP ESTEBANHDOB: [facility] Number: [id number] Hospital 277[address]Ynm: [phone] [id number] Repository [phone] () Date:2018-08-07[address]ATTN: [place] [address]MQ: 08/07/2018 Secondary NOT GIVENUNK [place] Insurance:SELF PAY [facility] Number: Effective Repository Date:2018-08-07
== END 2018-08-07 21:32 | disposition home or self-care (01) ==
PROVIDERS: Emergency Provider Emergency Medicine; Family Provider Internal Medicine; PCP Internal Medicine
DX: Z76.0 Encounter for issue of repeat prescription (principal); F25.0 Schizoaffective disorder, bipolar type; Z72.0 Tobacco use
CPT/HCPCS: 99283

== ENCOUNTER 2018-09-21 21:22 | Emergency (ER) | payer MEDICAID, SELFPAY ==
[2018-09-21 21:22] VITALS: BP 131/85; PULSE 87; RESP 18; TEMP 36.1; O2SAT 96; BMI 27.7
--- NOTE | 2018-09-21 22:50 | ED.RN ---
PT LEFT AFTER BEING PLACED IN ROOM 7 BEFORE HE WAS SEEN BY A ER
== END 2018-09-21 22:52 | disposition home or self-care (01) ==
LOC: ED 22:18
PROVIDERS: Emergency Provider Emergency Medicine; Family Provider Internal Medicine; PCP Internal Medicine
DX: R69 Illness, unspecified (principal)
CPT/HCPCS: 99281

== ENCOUNTER 2019-01-10 11:08 | Emergency (ER) | payer MEDICAID, SELFPAY ==
[2019-01-10 11:09] VITALS: BP 132/80; PULSE 88; RESP 17; TEMP 36.1; O2SAT 98; BMI 26.9
--- NOTE | 2019-01-10 14:20 | RAD_ITS ---
STUDY: X-RAY - CERVICAL SPINE REASON FOR EXAM: Male, 48 years old. Neck pain several days, without injury, some recent heavy lifting. TECHNIQUE: 3 view(s) of the cervical spine were obtained. COMPARISON: None FINDINGS: Prevertebral soft tissues, airways unremarkable. Cervical vertebral body height and alignment normal. Slight reversal of expected lordosis. No significant facet arthropathy. Odontoid and lateral masses intact and aligned without degeneration. C5-C6 mild disc narrowing, small anterior osteophyte, uncovertebral joint hypertrophy. Apical lungs clear, apical thoracic cage intact. RAD/Cerv Spine 2 or 3 Views IMPRESSION: Degenerative disc disease of C5-C6. No acute fracture or traumatic subluxation. Electronically Signed: Petr Garsia MD at 15:35 EDT Tel , Service support ,
--- NOTE | 2019-01-10 14:22 | ED.DCSUM_ITS ---
- ER Visit Summary Date of Service: 01/10/19 Chief Complaint: Neck pain History of Present Illness: The patient is a 48 M presenting with neck pain. Patient states he was lifting weights 3 days ago. He states he felt a pull in his neck while doing a bench press. He has tried no medications at home. He went to urgent care today. He states he was advised to come to the ED for further evaluation. Denies numbness or weakness. Denies other complaints. Physical Examination: Vitals are stable. Patient is afebrile. Alert no acute distress. HEENT exam is unremarkable. Neck is mild bilateral paraspinal muscle tenderness. No midline tenderness. Lungs are clear and equal bilaterally. Heart is regular rate and rhythm. Back: Nontender Extremities are unremarkable. Skin is warm and dry. No focal neurologic deficit. Normal strength and sensation. Remainder of exam is unremarkable. Emergency Department Course and Treatment: Patient was given Toradol IM. Cervical spine x-rays were ordered. Patient eloped prior to results or discha rge instructions. Cervical spine x-ray shows degenerative disc disease of C5- C6. No acute fracture or traumatic subluxation. Disposition: Elopement Impression: Neck strain This note was generated with [employer] dictation software. It may contain incorrect words, spelling, and punctuation that were not noted in review of the chart prior to signing ED Disposition - Plan for ED Patient: Disposition: Home or Assisted Living Referrals: Onur Woods MD [Primary Care Provider] -
== END 2019-01-10 14:52 | disposition home or self-care (01) ==
PROVIDERS: Emergency Provider Emergency Medicine; Family Provider Internal Medicine; PCP Internal Medicine
DX: S16.1XXA Strain of muscle, fascia and tendon at neck level, initial encounter (principal); X50.0XXA Overexertion from strenuous movement or load, initial encounter; Y93.B9 Activity, other involving muscle strengthening exercises; Y92.9 Unspecified place or not applicable; Y99.8 Other external cause status; M50.322 Other cervical disc degeneration at C5-C6 level; Z53.21 Procedure and treatment not carried out due to patient leaving prior to being seen by health care provider; Z72.0 Tobacco use
CPT/HCPCS: 72040; 99282